=== PATIENT | male | born 1965 | race Caucasian/White ===

== ENCOUNTER 2019-03-16 14:47 | Emergency (ER) | payer SELFPAY ==
--- NOTE | 2019-03-16 14:56 | PDOC ---
Rapid Medical Evaluation Time Seen by Provider: 03/16/19 14:52 Medical Evaluation: Allergies Allergy/AdvReac Type Severity Reaction Status Date / Time No Known Allergies Allergy Verified 02/14/18 11:15 03/16/19 14:52 Patient presents to ED with complaints of: rt knee x 1 week, started while walking, no prior injury Patient on brief exam: ambulatory, Lrom with flexion, tender to medial aspect of patella I have ordered: none Patient to proceed to the ED Discharge Disposition - Diagnosis Knee pain Qualifiers: Chronicity: acute Laterality: bilateral Qualified Code(s): M25.561 - Pain in right knee - Discharge Dispostion Disposition: HOME Condition at time of disposition: Stable - Referrals Referrals: Hector Peres MD [Staff Physician] - - Patient Instructions Printed Discharge Instructions: DI for Knee Pain Additional Instructions: You were evaluated for your knee pain today Take Motrin 600mg every 6 hours for pain Wear the brace you have to keep your knee cap in place. Call the doctor listed below for an appointment. I suspect you will need physical therapy for your pain Return to the ER for any new or worsening symptoms - Post Discharge Activity Work/School Note: Back to Work
[2019-03-16 15:01] VITALS: BP 128/77; PULSE 60; TEMP 98.2; BMI 25.7
--- NOTE | 2019-03-16 15:25 | PDOC ---
History of Present Illness - General Chief Complaint: Pain, Acute Stated Complaint: PAIN IN BOTH KNEES Time Seen by Provider: 03/16/19 14:52 History Source: Patient Exam Limitations: No Limitations Past History - Travel Traveled outside of the country in the last 30 days: No Close contact w/someone who was outside of country & ill: No - Past Medical History Allergies/Adverse Reactions: Allergies Allergy/AdvReac Type Severity Reaction Status Date / Time No Known Allergies Allergy Verified 03/16/19 14:55 Home Medications: Ambulatory Orders Lisinopril [Prinivil] 5 mg PO BID #60 tablet 02/15/18 Anemia: No Asthma: No Cancer: No Cardiac Disorders: No CVA: No COPD: No CHF: No Dementia: No Diabetes: No GI Disorders: No Disorders: No HTN: No Hypercholesterolemia: No Kidney Stones: No Liver Disease: No Seizures: No Thyroid Disease: No - Surgical History Abdominal Surgery: No Appendectomy: No Cardiac Surgery: No Cholecystectomy: No Lung Surgery: No Neurologic Surgery: No Orthopedic Surgery: No - Reproductive History Testicular Surgery: No - Suicide/Smoking/Psychosocial Hx Smoking History: Never smoked Have you smoked in the past 12 months: No 'Breaking Loose' booklet given: 08/14/13 Hx Alcohol Use: Yes Drug/Substance Use Hx: No Substance Use Type: Alcohol Hx Substance Use Treatment: No Review of Systems - Review of Systems Able to Perform ROS?: Yes Comments:: 03/16/19 15:46 CONSTITUTIONAL: Absent: fever, chills, diaphoresis, generalized weakness, malaise, loss of appetite HEENT: Absent: rhinorrhea, nasal congestion, throat pain, throat swelling, difficulty swallowing, mouth swelling, ear pain, eye pain, visual Changes CARDIOVASCULAR: Absent: chest pain, loss of consciousness, palpitations, irregular heart rate, peripheral edema RESPIRATORY: Absent: cough, shortness of breath, dyspnea with exertion, orthopnea, wheezing, stridor, hemoptysis GASTROINTESTINAL: Absent: abdominal pain, abdominal distension, nausea, vomiting, diarrhea, constipation, melena, hematochezia GENITOURINARY: Absent: dysuria, frequency, urgency, hesitancy, hematuria, flank pain, genital pain MUSCULOSKELETAL: Present: b/l knee pain Absent: myalgia, arthralgia, joint swelling SKIN: Absent: rash, itching, pallor HEMATOLOGIC/IMMUNOLOGIC: Absent: easy bleeding, easy bruising, lymphadenopathy, frequent infections ENDOCRINE: Absent: unexplained weight gain, unexplained weight loss, heat intolerance, cold intolerance NEUROLOGIC: Absent: headache, focal weakness or paresthesias, dizziness, unsteady gait, seizure, mental status changes, bladder or bowel incontinence PSYCHIATRIC: Absent: anxiety, depression, suicidal or homicidal ideation, hallucinations. Is the patient limited Upper Sorbian proficient: No *Physical Exam - Vital Signs Last Vital Signs Temp Pulse Resp BP Pulse Ox 98.2 F 60 16 128/77 99 03/16/19 14:50 03/16/19 14:50 03/16/19 14:50 03/16/19 14:50 03/16/19 14:50 - Physical Exam Comments: 03/16/19 15:46 GENERAL: The patient is awake, alert, and fully oriented, in no acute distress. HEAD: Normal with no signs of trauma. EYES: Pupils equal, round and reactive to light, extraocular movements intact, sclera anicteric, conjunctiva clear. EXTREMITIES: TTP of the b/l medial knees. Special testing within normal limits. Normal range of motion, no edema. NEUROLOGICAL: Normal speech, normal gait. PSYCH: Normal mood, normal affect. SKIN: Warm, Dry, normal turgor, no rashes or lesions noted. ED Treatment Course - RADIOLOGY Radiology Studies Ordered: Category Date Time Status KNEE 3 POS-RIGHT [RAD] Stat Radiology 03/16/19 15:03 Taken Medical Decision Making - Medical Decision Making 03/16/19 16:15 the patient is a 53-year-old male medical history who presents to the ER today with bilateral knee pain for one week. He states his been getting worse over the course of the week. He is wearing ear bases with little relief. 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 Denies numbness and tingling weakness in Extremities. A/P: Knee pain On exam the kneecaps or pulled laterally X-rays confirm need Placement. Suspect IT band syndrome Patient given Motrin as an outpatient; Toradol shot given with relief of symptoms. Discharge home with primary care. I discussed the physical exam findings, ancillary test results and final diagnoses with the patient. I answered all of the patient's questions. The patient was satisfied with the care received and felt comfortable with the discharge plan and treatment plan. The Patient agrees to follow up with the primary care physician/specialist within 24-72 hours. Return precautions were given. *DC/Admit/Observation/Transfer Diagnosis at time of Disposition: Knee pain Qualifiers: Chronicity: acute Laterality: bilateral Qualified Code(s): M25.561 - Pain in right knee; M25.562 - Pain in left knee - Discharge Dispostion Disposition: HOME Condition at time of disposition: Stable Decision to Admit order: No - Referrals Referrals: Hector Peres MD [Staff Physician] - - Patient Instructions Printed Discharge Instructions: DI for Knee Pain Additional Instructions: You were evaluated for your knee pain today Take Motrin 600mg every 6 hours for pain Wear the brace you have to keep your knee cap in place. Call the doctor listed below for an appointment. I suspect you will need physical therapy for your pain Return to the ER for any new or worsening symptoms - Post Discharge Activity Forms/Work/School Notes: Back to Work
[2019-03-16] MEDS ORDERED: KETOROLAC TROMETHAMINE 60 MG/2 ML VIAL IM ONE (15:45)
[2019-03-16] MEDS ORDERED: KETOROLAC TROMETHAMINE 60 MG/2 ML VIAL ONE (15:57)
== END 2019-03-16 16:46 | disposition home or self-care (01) ==
LOC: JERFT 14:47
PROC: 3E0233Z Introduction of Anti-inflammatory into Muscle, Percutaneous Approach (ICD-10-PCS; principal; 2019-03-16)
DX: M25.562 Pain in left knee (principal)
CPT/HCPCS: 73562-TC-RT-FY; 99281-25

== ENCOUNTER 2019-04-25 08:18 | Observation (INO) | payer OTHER ==
[2019-04-25] MEDS ORDERED: ACETAMINOPHEN 325 MG TABLET (FP) PO ONE (09:08)
[2019-04-25] MEDS ORDERED: SODIUM CHLORIDE 1,000 ML IV STA (09:08)
[2019-04-25] MEDS ORDERED: ACETAMINOPHEN 325 MG TABLET (FP) ONE (09:12)
[2019-04-25 09:34] LABS: BASO % 0.7 % (0-2.0); HEMATOCRIT 40.8 % (35.4-49); HEMOGLOBIN 13.8 GM/dL (11.7-16.9); MCH 31.8 pg (25.7-33.7); MCHC 33.8 g/dl (32.0-35.9); MEAN CELL VOLUME 93.9 fl (80-96); MEAN PLT VOLUME 7.5 fl (7.5-11.1); MONO % 16.3 % (3.8-10.2); PLATELET COUNT 90 K/MM3 (134-434); RBC 4.35 M/mm3 (4.00-5.60); RDW 13.6 % (11.9-15.9); WHITE BLOOD COUNT 4.3 K/mm3 (4.0-10.0)
[2019-04-25] MEDS ORDERED: THIAMINE HCL 200 MG/2 ML VIAL IVPB ONE (09:34)
[2019-04-25] MEDS ORDERED: FOLIC ACID INJECTION - 1 MG, THIAMINE HCL 100 MG, MULTIVIT INJECTION ADULT 10 ML in SOD... IVPB ONE (09:34)
[2019-04-25] MEDS ORDERED: THIAMINE HCL 200 MG/2 ML VIAL ONE (09:39)
[2019-04-25] MEDS ORDERED: LORazepam 2 MG/ML SDV VIAL ONE (09:40)
[2019-04-25 09:53] LABS: INR 1.15 (0.83-1.09); PROTHROMBIN TIME (PATIENT) 13.6 SEC (9.7-13.0)
[2019-04-25 09:58] LABS: EPI CELLS 2.8 /HPF (0-5/HPF); HYALINE CASTS 4 /lpf (0-8); URINE APPEARANCE CLEAR; URINE BACTERIA 3.1 /hpf (NEGATIVE); URINE BILIRUBIN NEGATIVE (NEGATIVE); URINE COLOR DK YELLOW; URINE GLUCOSE (UA) NEGATIVE (NEGATIVE); URINE KETONE 2+ (NEGATIVE); URINE LEUK ESTERASE NEGATIVE (NEGATIVE); URINE NITRITE NEGATIVE (NEGATIVE); URINE PROTEIN 1+ (NEGATIVE); URINE RBC 3 /hpf (0-4); URINE WBC 0 /hpf (0-5)
--- NOTE | 2019-04-25 09:58 | EKG ---
Test Reason : Blood Pressure : / mmHG Vent. Rate : 102 BPM Atrial Rate : 102 BPM P-R Int : 174 ms QRS Dur : 104 ms QT Int : 370 ms P-R-T Axes : 056 087 040 degrees QTc Int : 482 ms SINUS TACHYCARDIA POSSIBLE LEFT ATRIAL ENLARGEMENT BORDERLINE ECG WHEN COMPARED WITH ECG OF 15-FEB-2018 18:58, VENT. RATE HAS INCREASED BY 46 BPM Confirmed by ANTOINE CRAWFORD, RAS ([id number]) on 04/25/2019 9:58:15 AM Referred By: Confirmed By:RAS SCHULTZ MD
[2019-04-25 10:32] LABS: ALBUMIN 4.3 g/dl (3.4-5.0); BILIRUBIN,TOTAL 1.1 mg/dL (0.2-1); BLOOD UREA NITROGEN 7.9 mg/dL (7-18); CALCIUM 9.2 mg/dL (8.5-10.1); CREATININE 0.8 mg/dL (0.55-1.3); MAGNESIUM 1.8 mg/dL (1.8-2.4); POTASSIUM 3.9 mmol/L (3.5-5.1); TOT PROT 8.7 g/dl (6.4-8.2)
--- NOTE | 2019-04-25 13:49 | PDOC ---
Documentation entered by Winter Hodges SCRIBE, acting as scribe for Velasquez Spears MD. Velasquez Spears MD: This documentation has been prepared by the Tracie harper Sammi, SCRIBE, under my direction and personally reviewed by me in its entirety. I confirm that the documentation accurately reflects all work, treatment, procedures, and medical decision making performed by me. History of Present Illness - General Chief Complaint: Chest Pain Stated Complaint: CHEST PAIN Time Seen by Provider: 04/25/19 08:47 - History of Present Illness Initial Comments: 04/25/19 09:11 The patient is a 53 year old male who presents to the emergency department for evaluation of left sided pleuritic constant chest pain since last night, sharp in character, 9/10 in severity, with radiation down the left upper extremity, and associated subjective fever and dizziness. He reports a similar episode last month. Past History - Past Medical History Allergies/Adverse Reactions: Allergies Allergy/AdvReac Type Severity Reaction Status Date / Time No Known Allergies Allergy Verified 04/25/19 08:27 Home Medications: Ambulatory Orders Lisinopril [Prinivil] 5 mg PO BID #60 tablet 02/15/18 metFORMIN HCL [Metformin HCl] 500 mg PO DAILY 04/25/19 Anemia: No Asthma: No Cancer: No Cardiac Disorders: No CVA: No COPD: No CHF: No Dementia: No Diabetes: No GI Disorders: No Disorders: No HTN: Yes Hypercholesterolemia: No Kidney Stones: No Liver Disease: No Seizures: No Thyroid Disease: No - Surgical History Abdominal Surgery: No Appendectomy: No Cardiac Surgery: No Cholecystectomy: No Lung Surgery: No Neurologic Surgery: No Orthopedic Surgery: No - Reproductive History Testicular Surgery: No - Psycho Social/Smoking Cessation Hx Smoking History: Never smoked Have you smoked in the past 12 months: No Information on smoking cessation initiated: No 'Breaking Loose' booklet given: 08/14/13 Hx Alcohol Use: Yes Drug/Substance Use Hx: No Substance Use Type: Alcohol Hx Substance Use Treatment: No Cardiac Specific PMH - Complaint Specific PMHX Pacemaker: No Review of Systems - Review of Systems Comments:: 04/25/19 09:11 CONSTITUTIONAL: +fever. +dizziness. no chills, no fatigue EYES: No visual changes ENT: No ear pain, no sore throat CARDIOVASCULAR: +pleuritic chest pain. no palpitations RESPIRATORY: No cough, no SOB GI: No abdominal pain, no nausea, no vomiting, no constipation, no diarrhea GENITOURINARY: No dysuria, no frequency, no hematuria MUSKULOSKELETAL: No backpain, no joint pain, no myalgias SKIN: No rash NEURO: No headache *Physical Exam - Vital Signs Last Vital Signs Temp Pulse Resp BP Pulse Ox 99.5 F 92 H 18 148/90 96 04/25/19 09:05 04/25/19 10:54 04/25/19 10:54 04/25/19 10:54 04/25/19 10:54 - Physical Exam Comments: 04/25/19 11:12 CONSTITUTIONAL: +tremulous. NECK: Supple; non-tender; no cervical lymphadenopathy CARD: +tachycardic. Normal S1, S2; no murmurs, rubs, or gallops RESP: Normal chest excursion with respiration; breath sounds clear and equal bilaterally; no wheezes, rhonchi, or rales ABD: Soft, non-distended; non-tender; no palpable organomegaly, no palpable hernias EXT: Normal ROM in all four extremities; non-tender to palpation; distal pulses intact SKIN: Warm, dry, no rash NEURO: No focal neurological deficiencies. ED Treatment Course - LABORATORY CBC & Chemistry Diagram: 04/25/19 09:22 04/25/19 09:22 - ADDITIONAL ORDERS Additional order review: Laboratory Results 04/25/19 04/25/19 04/25/19 09:22 09:22 09:22 PT with INR 13.60 H INR 1.15 H Sodium 140 Potassium 3.9 Chloride 102 Carbon Dioxide 29 Anion Gap 9 BUN 7.9 Creatinine 0.8 Est GFR (CKD-EPI)AfAm 119.88 Est GFR (CKD-EPI)NonAf 103.43 Random Glucose 107 H Calcium 9.2 Magnesium 1.8 Total Bilirubin 1.1 H AST 277 H ALT 201 H Alkaline Phosphatase 150 H Creatine Kinase Creatine Kinase Index CK-MB (CK-2) Troponin I Total Protein 8.7 H Albumin 4.3 Urine Color Dk yellow Urine Appearance Clear Urine pH 8.0 Ur Specific [place] 1.022 Urine Protein 1+ H Urine Glucose (UA) Negative Urine Ketones 2+ H Urine Blood Negative Urine Nitrite Negative Urine Bilirubin Negative Urine Urobilinogen 1.0 Ur Leukocyte Esterase Negative Urine WBC (Auto) 0 Urine RBC (Auto) 3 Urine Casts (Auto) 4 U Epithel Cells (Auto) 2.8 Urine Bacteria (Auto) 3.1 04/25/19 09:22 PT with INR INR Sodium Potassium Chloride Carbon Dioxide Anion Gap BUN Creatinine Est GFR (CKD-EPI)AfAm Est GFR (CKD-EPI)NonAf Random Glucose Calcium Magnesium Total Bilirubin AST ALT Alkaline Phosphatase Creatine Kinase 160 Creatine Kinase Index No Result Required. CK-MB (CK-2) < 1.0 Troponin I < 0.02 Total Protein Albumin Urine Color Urine Appearance Urine pH Ur Specific [place] Urine Protein Urine Glucose (UA) Urine Ketones Urine Blood Urine Nitrite Urine Bilirubin Urine Urobilinogen Ur Leukocyte Esterase Urine WBC (Auto) Urine RBC (Auto) Urine Casts (Auto) U Epithel Cells (Auto) Urine Bacteria (Auto) 04/25/19 09:22 RBC 4.35 MCV 93.9 MCHC 33.8 RDW 13.6 MPV 7.5 Neutrophils % 76.0 D Lymphocytes % 7.0 L D Monocytes % 16.3 H Eosinophils % 0.0 D Basophils % 0.7 - RADIOLOGY Radiology Studies Ordered: Category Date Time Status CHEST X-RAY PORTABLE* [RAD] Stat Radiology 04/25/19 09:06 Completed - Medications Given in the ED: ED Medications Discontinued Medications Generic Name Dose Route Start Last Admin Trade Name Freq PRN Reason Stop Dose Admin Acetaminophen 650 mg 04/25/19 09:08 04/25/19 09:29 Tylenol - PO 04/25/19 09:09 650 mg ONCE ONE Administration Sodium Chloride 1,000 mls @ 1,000 mls/hr 04/25/19 09:08 04/25/19 09:29 Normal Saline - IV 04/25/19 10:07 1,000 mls/hr ASDIR STA Administration Lorazepam 1 mg 04/25/19 09:33 04/25/19 09:45 Ativan Injection - IVPUSH 04/25/19 09:34 1 mg ONCE ONE Administration Thiamine HCl 200 mg 04/25/19 09:34 04/25/19 09:45 Vitamin B1 Injection - IVPB 04/25/19 09:35 200 mg ONCE ONE Administration Medical Decision Making - Medical Decision Making 04/25/19 13:47 Patient is a 53-year-old male with history of diabetes, hypertension alcohol abuse who presents with atraumatic left-sided chest discomfort and bilateral tremors after cessation of alcohol use 3 days prior to arrival. EKG showed no evidence of acute ischemia and first set of cardiac enzymes is noted to be within normal limits. Patient's tremors are likely related to acute alcohol withdrawal and IV Ativan was administered. On reassessment, patient is noted to be sleeping, easily arousable without evidence of a significant tremor. Chest x-ray reveals no evidence of pneumothorax/infiltrate or effusion. There is no evidence of cardiomegaly. Patient's heart score is noted to be 4. Given constellation of symptoms, will place on telemetry/rubs. Case discussed with Dr. cherry and she agrees with the plan of care. Discharge - Discharge Information Problems reviewed: Yes Clinical Impression/Diagnosis: Chest pain Qualifiers: Chest pain type: unspecified Qualified Code(s): R07.9 - Chest pain, unspecified Alcohol withdrawal Qualifiers: Complication of substance-induced condition: uncomplicated Qualified Code(s): F10.230 - Alcohol dependence with withdrawal, uncomplicated Condition: Fair - Admission Yes - Follow up/Referral - Patient Discharge Instructions - Post Discharge Activity
[2019-04-25 18:50] VITALS: BMI 23.8
--- NOTE | 2019-04-25 19:10 | HP ---
Admitting History and Physical - Primary Care Physician PCP: Anthony Arreola - Admission History of Present Illness: - 53 year old male who presents to the emergency department for evaluation of left sided pleuritic constant chest pain since last night, sharp in character, 9 /10 in severity, with radiation down the left upper extremity, and associated subjective fever and dizziness. He reports a similar episode last month. - Past Surgical History Past Surgical History: Yes: None - Smoking History Smoking history: Former smoker Have you smoked in the past 12 months: No - Alcohol/Substance Use Hx Alcohol Use: Yes History of Substance Use: reports: None Home Medications - Allergies Allergies/Adverse Reactions: Allergies Allergy/AdvReac Type Severity Reaction Status Date / Time No Known Allergies Allergy Verified 04/25/19 08:27 - Home Medications Home Medications: Ambulatory Orders Lisinopril [Prinivil] 5 mg PO BID #60 tablet 02/15/18 metFORMIN HCL [Metformin HCl] 500 mg PO DAILY 04/25/19 Physical Examination Vital Signs: Vital Signs Temperature 98 F 04/25/19 18:42 Pulse Rate 81 04/25/19 18:42 Respiratory Rate 18 04/25/19 18:42 Blood Pressure 169/98 04/25/19 18:42 O2 Sat by Pulse Oximetry (%) 99 04/25/19 18:24 Constitutional: Yes: No Distress HENT: Yes: Atraumatic Neck: Yes: Supple Cardiovascular: Yes: Regular Rate and Rhythm Respiratory: Yes: CTA Bilaterally Gastrointestinal: Yes: Normal Bowel Sounds Extremities: Yes: WNL Edema: No Peripheral Pulses WNL: Yes Neurological: Yes: Alert, Oriented Labs: CBC, BMP 04/25/19 09:22 04/25/19 09:22 Imaging - Results X-ray: Report Reviewed Problem List - Problems (1) Chest pain Assessment/Plan: tele monitoring fu cardiac profile cardiology consult Code(s): R07.9 - CHEST PAIN, UNSPECIFIED Qualifiers: Chest pain type: unspecified Qualified Code(s): R07.9 - Chest pain, unspecified (2) Hypercholesterolemia Code(s): E78.00 - PURE HYPERCHOLESTEROLEMIA, UNSPECIFIED (3) Hypertension Code(s): I10 - ESSENTIAL (PRIMARY) HYPERTENSION Qualifiers: (4) Diabetes Assessment/Plan: on meds monitor bgms Code(s): E11.9 - TYPE 2 DIABETES MELLITUS WITHOUT COMPLICATIONS Assessment/Plan Laboratory Tests 04/25/19 04/25/19 04/25/19 09:22 09:22 09:22 WBC 4.3 RBC 4.35 Hgb 13.8 Hct 40.8 MCV 93.9 MCH 31.8 MCHC 33.8 RDW 13.6 Plt Count 90 L D MPV 7.5 Absolute Neuts (auto) 3.3 Neutrophils % 76.0 D Lymphocytes % 7.0 L D Monocytes % 16.3 H Eosinophils % 0.0 D Basophils % 0.7 Nucleated RBC % 0 PT with INR INR Sodium 140 Potassium 3.9 Chloride 102 Carbon Dioxide 29 Anion Gap 9 BUN 7.9 Creatinine 0.8 Est GFR (CKD-EPI)AfAm 119.88 Est GFR (CKD-EPI)NonAf 103.43 Random Glucose 107 H Calcium 9.2 Magnesium 1.8 Total Bilirubin 1.1 H AST 277 H ALT 201 H Alkaline Phosphatase 150 H Creatine Kinase 160 Creatine Kinase Index No Result Required. CK-MB (CK-2) < 1.0 Troponin I < 0.02 Total Protein 8.7 H Albumin 4.3 Urine Color Urine Appearance Urine pH Ur Specific [place] Urine Protein Urine Glucose (UA) Urine Ketones Urine Blood Urine Nitrite Urine Bilirubin Urine Urobilinogen Ur Leukocyte Esterase Urine WBC (Auto) Urine RBC (Auto) Urine Casts (Auto) U Epithel Cells (Auto) Urine Bacteria (Auto) 04/25/19 04/25/19 09:22 09:22 WBC RBC Hgb Hct MCV MCH MCHC RDW Plt Count MPV Absolute Neuts (auto) Neutrophils % Lymphocytes % Monocytes % Eosinophils % Basophils % Nucleated RBC % PT with INR 13.60 H INR 1.15 H Sodium Potassium Chloride Carbon Dioxide Anion Gap BUN Creatinine Est GFR (CKD-EPI)AfAm Est GFR (CKD-EPI)NonAf Random Glucose Calcium Magnesium Total Bilirubin AST ALT Alkaline Phosphatase Creatine Kinase Creatine Kinase Index CK-MB (CK-2) Troponin I Total Protein Albumin Urine Color Dk yellow Urine Appearance Clear Urine pH 8.0 Ur Specific [place] 1.022 Urine Protein 1+ H Urine Glucose (UA) Negative Urine Ketones 2+ H Urine Blood Negative Urine Nitrite Negative Urine Bilirubin Negative Urine Urobilinogen 1.0 Ur Leukocyte Esterase Negative Urine WBC (Auto) 0 Urine RBC (Auto) 3 Urine Casts (Auto) 4 U Epithel Cells (Auto) 2.8 Urine Bacteria (Auto) 3.1 Active Medications Generic Name Dose Route Start Last Admin Trade Name Freq PRN Reason Stop Dose Admin Lisinopril 5 mg 04/25/19 22:00 04/26/19 09:42 Prinivil PO 5 mg BID OLVIN Administration Metformin HCl 500 mg 04/26/19 07:00 04/26/19 06:45 Glucophage - PO 500 mg AM OLVIN Administration
[2019-04-25] MEDS: LISINOPRIL 5 MG TABLET (FP) PO SCH (21:16)
[2019-04-26] MEDS: metFORMIN HCL 500 MG TABLET (FP) PO SCH (06:45)
[2019-04-26] MEDS: LISINOPRIL 5 MG TABLET (FP) PO SCH ×2 (09:42→22:04)
--- NOTE | 2019-04-26 15:10 | CON.CARD ---
Consult Consult Specialty:: Cardiology Referred by:: Dr. Arreola Reason for Consultation:: Cardiac evaluation - History of Present Illness Chief Complaint: Chest pain History of Present Illness: Patient is a 53 year old male with history of type 2 DM and HTN who presented with left sided chest discomfort which appears to be pleuritic. He describes a "sharp" pain. He denies shortness of breath or palpitations. He denies paroxysmal nocturnal dyspnea or orthopnea. He denies fever or chills. He denies nausea, vomiting, diarrhea or abdominal pain. He denies headache or lightheadedness. - History Source History Provided By: Patient, Medical Record Limitations to Obtaining History: No Limitations - Past Medical History Cardio/Vascular: Yes: HTN Endocrine: Yes: Diabetes Mellitus - Past Surgical History Past Surgical History: Yes: None - Alcohol/Substance Use Hx Alcohol Use: Yes History of Substance Use: reports: None - Smoking History Smoking history: Former smoker Have you smoked in the past 12 months: No Home Medications - Allergies Allergies/Adverse Reactions: Allergies Allergy/AdvReac Type Severity Reaction Status Date / Time No Known Allergies Allergy Verified 04/25/19 08:27 - Home Medications Home Medications: Ambulatory Orders Lisinopril [Prinivil] 5 mg PO BID #60 tablet 02/15/18 metFORMIN HCL [Metformin HCl] 500 mg PO DAILY 04/25/19 Review of Systems - Review of Systems Constitutional: denies: Chills, Fever Cardiovascular: reports: Chest Pain. denies: Palpitations, Shortness of Breath Respiratory: denies: Cough, Hemoptysis, Orthopnea, PND, SOB, SOB on Exertion Gastrointestinal: denies: Abdominal Pain, Constipation, Diarrhea, Melena, Nausea , Rectal Bleeding, Vomiting Genitourinary: denies: Dysuria, Hematuria Musculoskeletal: denies: Back Pain, Joint Pain Neurological: denies: Dizziness, Headache, Seizure, Syncope Vital Signs: Vital Signs Temperature 98.7 F 04/26/19 06:00 Pulse Rate 82 04/26/19 10:00 Respiratory Rate 18 04/26/19 10:00 Blood Pressure 123/78 04/26/19 10:00 O2 Sat by Pulse Oximetry (%) 99 04/26/19 05:00 Eyes: Yes: PERRL HENT: Yes: Atraumatic Neck: Yes: Supple Respiratory: Yes: CTA Bilaterally Gastrointestinal: Yes: Normal Bowel Sounds, Soft. No: Tenderness Cardiovascular: Yes: Regular Rate and Rhythm JVD: No Carotid Bruit: No PMI: Non-Displaced Heart Sounds: Yes: S1, S2 Edema: No - Other Data Labs, Other Data: CBC, BMP 04/25/19 09:22 04/25/19 09:22 INR, PTT INR 1.15 (0.83-1.09) H 04/25/19 09:22 Troponin, BNP 04/25/19 04/26/19 20:00 06:05 Troponin I < 0.02 < 0.02 Sinus tachycardia Imaging - Results Chest X-ray: Report Reviewed (Unremarkable) EKG: Report Reviewed Problem List - Problems (1) Diabetes Code(s): E11.9 - TYPE 2 DIABETES MELLITUS WITHOUT COMPLICATIONS (2) Transaminitis Code(s): R74.0 - NONSPEC ELEV OF LEVELS OF TRANSAMNS & LACTIC ACID DEHYDRGNSE (3) Atypical chest pain Code(s): R07.89 - OTHER CHEST PAIN Assessment/Plan 1. Chest pain syndrome, atypical 2. DM 3. HTN 4. Abnormal LFT PLAN: 1. Troponins are negative 2. Continue Lisinopril 3. Continue current medical therapy 4. Further evaluation for abnormal LFT 5. Echocardiography in AM Further plans are to follow Waqar Newton MD
--- NOTE | 2019-04-26 18:10 | PN ---
Progress Note, Physician - Current Medication List Current Medications: Active Medications Lisinopril (Prinivil) 5 mg PO BID [facility] Last Admin: 04/26/19 09:42 Dose: 5 mg Metformin HCl (Glucophage -) 500 mg PO AM [facility] Last Admin: 04/26/19 06:45 Dose: 500 mg - Objective Vital Signs: Vital Signs Temperature 98.0 F 04/26/19 14:00 Pulse Rate 76 04/26/19 14:00 Respiratory Rate 18 04/26/19 10:00 Blood Pressure 126/78 04/26/19 14:00 O2 Sat by Pulse Oximetry (%) 99 04/26/19 05:00 Constitutional: Yes: No Distress HENT: Yes: Atraumatic Neck: Yes: Supple Cardiovascular: Yes: Regular Rate and Rhythm Respiratory: Yes: CTA Bilaterally Extremities: Yes: WNL Labs: CBC, BMP 04/25/19 09:22 04/25/19 09:22 INR, PTT INR 1.15 (0.83-1.09) H 04/25/19 09:22 Problem List - Problems (1) Chest pain Assessment/Plan: tele monitoring fu cardiac profile...NEGATIVE DC IF CLEARED BY CARDIOLOGY Code(s): R07.9 - CHEST PAIN, UNSPECIFIED Qualifiers: Chest pain type: unspecified Qualified Code(s): R07.9 - Chest pain, unspecified (2) Hypercholesterolemia Code(s): E78.00 - PURE HYPERCHOLESTEROLEMIA, UNSPECIFIED (3) Hypertension Assessment/Plan: ON MEDS Code(s): I10 - ESSENTIAL (PRIMARY) HYPERTENSION Qualifiers: (4) Diabetes Assessment/Plan: on meds monitor bgms Code(s): E11.9 - TYPE 2 DIABETES MELLITUS WITHOUT COMPLICATIONS
[2019-04-26] MEDS: ACETAMINOPHEN 325 MG TABLET (FP) PO PRN (22:02)
[2019-04-27] MEDS: ACETAMINOPHEN 325 MG TABLET (FP) PO PRN (05:51)
[2019-04-27] MEDS: metFORMIN HCL 500 MG TABLET (FP) PO SCH (06:07)
[2019-04-27 07:24] LABS: ALBUMIN 3.8 g/dl (3.4-5.0); BILIRUBIN,TOTAL 1.6 mg/dL (0.2-1); BLOOD UREA NITROGEN 9.3 mg/dL (7-18); CALCIUM 9.1 mg/dL (8.5-10.1); CREATININE 0.8 mg/dL (0.55-1.3); POTASSIUM 4.4 mmol/L (3.5-5.1)
[2019-04-27] MEDS: LISINOPRIL 5 MG TABLET (FP) PO SCH (10:18)
--- NOTE | 2019-04-27 10:44 | ECHO ---
Name: LANEY HOPE Exam:Adult Echocardiogram Study Date: 04/27/2019 08:40 AM Age: 53 yrs Reason For Study: Chest pain Height: 64 in Weight: 139 lb BSA: 1.7 m2 MMode/2D Measurements & Calculations IVSd: 1.0 cm Ao root diam: 2.9 cm LVIDd: 4.3 cm LA dimension: 3.0 cm LVIDs: 2.8 cm LVPWd: 1.0 cm EDV(Teich): 81.8 ml LVOT diam: 2.0 cm ESV(Teich): 28.6 ml LAV (MOD-bp): 38.8 ml Doppler Measurements & Calculations MV E max dieudonne: 36.9 cm/sec Ao V2 max: 101.8 cm/sec MV A max dieudonne: 73.2 cm/sec Ao max P.1 mmHg MV E/A: 0.50 AI P1/2t: 548.5 msec MV dec time: 0.12 sec RYAN(V,D): 2.7 cm2 AI max dieudonne: 283.0 cm/sec LV V1 max P.2 mmHg AI max P.6 mmHg LV V1 max: 89.2 cm/sec AI dec slope: 151.1 cm/sec2 TR max dieudonne: 195.7 cm/sec PA V2 max: 90.9 cm/sec TR max P.4 mmHg PA max P.3 mmHg Med Peak E' Dieudonne: 4.5 cm/sec PI Vmax: 69.2 cm/sec Med E/e': 8.3 Lat Peak E' Dieudonne: 4.4 cm/sec Lat E/e': 8.5 Procedure The study was technically difficult with many images being suboptimal in quality. Left Ventricle Left ventricular systolic function is low normal. Ejection Fraction = 50%. Right Ventricle The right ventricle is normal in size and function. Atria Normal left and right atrial size and function. Mitral Valve The mitral valve is normal in structure and function. There is no mitral valve stenosis. There is no mitral regurgitation noted. Tricuspid Valve The tricuspid valve is normal in structure and function. There is mild tricuspid regurgitation. Aortic Valve The aortic valve opens well. No hemodynamically significant valvular aortic stenosis. Mild to moderat e aortic regurgitation. Pulmonic Valve The pulmonic valve is not well seen, but is grossly normal. There is no pulmonic valvular stenosis. Great Vessels The aortic root is normal size. Pericardium/Pleura There is no pericardial effusion. Interpretation Summary The study was technically difficult with many images being suboptimal in quality. Left ventricular systolic function is low normal. Ejection Fraction = 50%. The right ventricle is normal in size and function. There is mild tricuspid regurgitation. Mild to moderate aortic regurgitation. There is no pericardial effusion. MD Quiles *Jermaine 04/27/2019 10:43 AM
--- NOTE | 2019-04-27 12:12 | PN ---
Progress Note, Physician Chief Complaint: Not in distress History of Present Illness: Patient was seen and examined. Awake and alert. Chart was reviewed Denies chest pain, SOB or palpitations - Current Medication List Current Medications: Active Medications Acetaminophen (Tylenol -) 650 mg PO Q6H PRN PRN Reason: PAIN LEVEL 1-5 Last Admin: 04/27/19 05:51 Dose: 650 mg Lisinopril (Prinivil) 5 mg PO BID [facility] Last Admin: 04/27/19 10:18 Dose: 5 mg Metformin HCl (Glucophage -) 500 mg PO AM [facility] Last Admin: 04/27/19 06:07 Dose: 500 mg - Objective Vital Signs: Vital Signs Temperature 98.1 F 04/27/19 10:00 Pulse Rate 71 04/27/19 10:00 Respiratory Rate 20 04/27/19 10:00 Blood Pressure 119/64 04/27/19 10:00 O2 Sat by Pulse Oximetry (%) 100 04/27/19 08:00 Eyes: Yes: PERRL HENT: Yes: Atraumatic Neck: Yes: Supple Cardiovascular: Yes: Regular Rate and Rhythm, S1, S2 Respiratory: Yes: CTA Bilaterally Gastrointestinal: Yes: Normal Bowel Sounds, Soft. No: Tenderness Edema: No Additional Findings/Remarks: - Review of Systems Constitutional: denies: Chills, Fever Cardiovascular: reports: Chest Pain. denies: Palpitations, Shortness of Breath Respiratory: denies: Cough, Hemoptysis, Orthopnea, PND, SOB, SOB on Exertion Gastrointestinal: denies: Abdominal Pain, Constipation, Diarrhea, Melena, Nausea , Rectal Bleeding, Vomiting Genitourinary: denies: Dysuria, Hematuria Musculoskeletal: denies: Back Pain, Joint Pain Neurological: denies: Dizziness, Headache, Seizure, Syncope Labs: CBC, BMP 04/25/19 09:22 04/27/19 05:27 INR, PTT INR 1.15 (0.83-1.09) H 04/25/19 09:22 Problem List - Problems (1) Diabetes Code(s): E11.9 - TYPE 2 DIABETES MELLITUS WITHOUT COMPLICATIONS (2) Transaminitis Code(s): R74.0 - NONSPEC ELEV OF LEVELS OF TRANSAMNS & LACTIC ACID DEHYDRGNSE (3) Atypical chest pain Code(s): R07.89 - OTHER CHEST PAIN Assessment/Plan 1. Chest pain syndrome, atypical 2. DM 3. HTN 4. Abnormal LFT PLAN: 1. Troponins are negative 2. Continue Lisinopril 3. Continue current medical therapy 4. Abdominal US reveals fatty liver. Follow up LFT. 5. Echocardiography report was reviewed with low normal LV systolic function, mild to moderate TR Further plans are to follow Waqar Newton MD
[2019-04-27 14:53] VITALS: TEMP 98.8
[2019-04-27 16:38] VITALS: BP 114/57; PULSE 85
--- NOTE | 2019-04-28 00:38 | DS ---
Physical Examination Vital Signs: Vital Signs Temperature 98.8 F 04/27/19 14:00 Pulse Rate 85 04/27/19 16:37 Respiratory Rate 20 04/27/19 16:37 Blood Pressure 114/57 L 04/27/19 16:37 O2 Sat by Pulse Oximetry (%) 100 04/27/19 16:00 Labs: CBC, BMP 04/25/19 09:22 04/27/19 05:27 Discharge Summary Problems reviewed: Yes Reason For Visit: ALCOHOL WITHDRAWAL Condition: Fair - Instructions Diet, Activity, Other Instructions: SEE YOUR PMD 2-3 DAYS Disposition: HOME - Home Medications Comprehensive Discharge Medication List: Ambulatory Orders Lisinopril [Prinivil] 5 mg PO BID #60 tablet 04/28/19 metFORMIN HCL [Metformin HCl] 500 mg PO DAILY #30 tablet 04/28/19
== END 2019-04-27 18:51 | disposition home or self-care (01) ==
LOC: JER 08:18 → JERBED 14:35 → J4W 18:36
PROVIDERS: ADMIT Internal Medicine; ATTEND Internal Medicine
PROC: 3E033GC Introduction of Other Therapeutic Substance into Peripheral Vein, Percutaneous Approach (ICD-10-PCS; principal; 2019-04-25)
PROC: 3E033GC Introduction of Other Therapeutic Substance into Peripheral Vein, Percutaneous Approach (ICD-10-PCS; 2019-04-25)
PROC: 3E0337Z Introduction of Electrolytic and Water Balance Substance into Peripheral Vein, Percutaneous Approach (ICD-10-PCS; 2019-04-25)
DX: R07.89 Other chest pain (principal); F10.230 Alcohol dependence with withdrawal, uncomplicated; I10 Essential (primary) hypertension; E78.00 Pure hypercholesterolemia, unspecified; E11.9 Type 2 diabetes mellitus without complications; Z79.84 Long term (current) use of oral hypoglycemic drugs; R74.0 Nonspecific elevation of levels of transaminase and lactic acid dehydrogenase [LDH]
CPT/HCPCS: 36415; 71045-TC-FY; 76705-TC; 80053; 80061; 81003; 82550; 82553; 82962; 83721; 83735; 84484; 85025; 85610; 87040; 87076; 87086; 93005; 93010; 93306-TC; 96365; 96366; 96375; 99285-25; G0378; J7030

== ENCOUNTER 2020-07-29 04:06 | Emergency (ER) | payer OTHER ==
[2020-07-29 04:19] VITALS: BMI 25.7
[2020-07-29] MEDS ORDERED: LORazepam 2 MG/ML SDV VIAL IVPUSH ONE (06:12)
[2020-07-29] MEDS ORDERED: LORazepam 2 MG/ML SDV VIAL ONE (06:19)
[2020-07-29 06:30] LABS: BASO % 0.4 % (0-2.0); EOS % 0.9 % (0-4.5); HEMATOCRIT 39.1 % (35.4-49); HEMOGLOBIN 13.7 GM/dL (11.7-16.9); LYMPH % 22.3 % (8-40); MCH 31.6 pg (25.7-33.7); MEAN CELL VOLUME 90.5 fl (80-96); MEAN PLT VOLUME 8.2 fl (7.5-11.1); MONO % 12.9 % (3.8-10.2); NEUT % 63.5 % (42.8-82.8); PLATELET COUNT 77 K/MM3 (134-434); RBC 4.32 M/mm3 (4.00-5.60); RDW 13.3 % (11.9-15.9); WHITE BLOOD COUNT 3.1 K/mm3 (4.0-10.0)
[2020-07-29 06:48] LABS: CHLORIDE 98 mmol/L (98-107); SODIUM 134 mmol/L (136-145)
[2020-07-29 06:50] LABS: CALCIUM 8.2 mg/dL (8.5-10.1)
[2020-07-29 06:51] LABS: ALBUMIN 3.6 g/dl (3.4-5.0); ANION GAP 9 MMOL/L (8-16); BLOOD UREA NITROGEN 4.6 mg/dL (7-18); CO2 28 mmol/L (21-32); GLUCOSE,RANDOM 268 mg/dL (74-106); LIPASE 177 U/L (73-393)
[2020-07-29 06:54] LABS: CREATININE 0.7 mg/dL (0.55-1.3); SGOT/AST 221 U/L (15-37); SGPT/ALT 175 U/L (13-61)
[2020-07-29 06:55] LABS: BILIRUBIN,TOTAL 1.1 mg/dL (0.2-1); TOT PROT 8.6 g/dl (6.4-8.2)
[2020-07-29 06:56] LABS: ALK PHOS 255 U/L (45-117)
[2020-07-29 07:05] LABS: INR 1.09 (0.83-1.09); PROTHROMBIN TIME (PATIENT) 13.2 SEC (9.7-13.0)
[2020-07-29 07:07] LABS: ACTIVATED PTT 32.6 SECONDS (25.2-36.5)
[2020-07-29 09:42] VITALS: BP 150/90; PULSE 109; TEMP 98.8
== END 2020-07-29 11:53 | disposition home or self-care (01) ==
LOC: JER 04:06
PROC: 3E033NZ Introduction of Analgesics, Hypnotics, Sedatives into Peripheral Vein, Percutaneous Approach (ICD-10-PCS; principal; 2020-07-29)
DX: F10.20 Alcohol dependence, uncomplicated (principal); R07.9 Chest pain, unspecified
CPT/HCPCS: 36415; 70450-TC; 71275-TC; 74174-TC; 80053; 82550; 83605; 83690; 84484; 85025; 85610; 85730; 93005; 93010; 99285-25; Q9967

== ENCOUNTER 2020-11-27 13:44 | Inpatient (IN) | payer OTHER ==
[2020-11-27] MEDS ORDERED: SODIUM CHLORIDE 0.9% 500 ML INFUS.BAG IV ONE ×2 (14:56→17:55)
[2020-11-27 15:11] LABS: BASO % 0.7 % (0-2.0); EOS % 1.1 % (0-4.5); HEMATOCRIT 33.7 % (35.4-49); HEMOGLOBIN 11.7 GM/dL (11.7-16.9); LYMPH % 31.8 % (8-40); MCH 34.2 pg (25.7-33.7); MCHC 34.8 g/dl (32.0-35.9); MEAN CELL VOLUME 98.2 fl (80-96); MEAN PLT VOLUME 7.8 fl (7.5-11.1); MONO % 15.4 % (3.8-10.2); PLATELET COUNT 113 K/MM3 (134-434); RBC 3.43 M/mm3 (4.00-5.60); RDW 12.7 % (11.9-15.9); WHITE BLOOD COUNT 3.9 K/mm3 (4.0-10.0)
[2020-11-27 15:13] LABS: VENOUS BASE EXCESS -4.2 mmol/L (-2-2); VENOUS O2 SATURATION 94.2 % (70-80); VENOUS PCO2 37.5 mmHg (38-52); VENOUS PH 7.361 (7.310-7.410)
[2020-11-27 15:36] LABS: CHLORIDE 100 mmol/L (98-107); SODIUM 138 mmol/L (136-145)
[2020-11-27 15:38] LABS: CALCIUM 8.1 mg/dL (8.5-10.1)
[2020-11-27 15:39] LABS: ALBUMIN 2.9 g/dl (3.4-5.0); ANION GAP 17 MMOL/L (8-16); BLOOD UREA NITROGEN 3.5 mg/dL (7-18); CO2 21 mmol/L (21-32); GLUCOSE,RANDOM 387 mg/dL (74-106); MAGNESIUM 1.9 mg/dL (1.8-2.4)
[2020-11-27 15:42] LABS: CREATININE 0.5 mg/dL (0.55-1.3); SGOT/AST 291 U/L (15-37); SGPT/ALT 200 U/L (13-61)
[2020-11-27 15:43] LABS: BILIRUBIN,TOTAL 0.6 mg/dL (0.2-1); TOT PROT 6.4 g/dl (6.4-8.2)
[2020-11-27 15:44] LABS: ALK PHOS 269 U/L (45-117)
[2020-11-27 18:10] LABS: URINE APPEARANCE CLEAR; URINE BILIRUBIN NEGATIVE (NEGATIVE); URINE COLOR YELLOW; URINE GLUCOSE (UA) 3+ (NEGATIVE); URINE KETONE 2+ (NEGATIVE); URINE LEUK ESTERASE NEGATIVE (NEGATIVE); URINE NITRITE NEGATIVE (NEGATIVE); URINE PROTEIN NEGATIVE (NEGATIVE); URINE UROBILINOGEN 0.2 mg/dL (0.2-1.0)
[2020-11-27 20:02] LABS: CHLORIDE 102 mmol/L (98-107); SODIUM 139 mmol/L (136-145)
[2020-11-27 20:05] LABS: ANION GAP 15 MMOL/L (8-16); CALCIUM 7.1 mg/dL (8.5-10.1); CO2 22 mmol/L (21-32); GLUCOSE,RANDOM 259 mg/dL (74-106)
[2020-11-27 20:06] LABS: ALBUMIN 2.6 g/dl (3.4-5.0)
[2020-11-27 20:08] LABS: SGPT/ALT 202 U/L (13-61)
[2020-11-27 20:09] LABS: CREATININE 0.4 mg/dL (0.55-1.3); SGOT/AST 370 U/L (15-37)
[2020-11-27 20:10] LABS: BILIRUBIN,TOTAL 0.6 mg/dL (0.2-1); TOT PROT 5.8 g/dl (6.4-8.2)
[2020-11-27 20:16] LABS: ALK PHOS 228 U/L (45-117); BLOOD UREA NITROGEN 2.7 mg/dL (7-18)
[2020-11-27] MEDS ORDERED: POTASSIUM CHLORIDE TABS 20 MEQ TABLET.ER (FP) PO ONE ×2 (20:28→20:32)
[2020-11-27] MEDS ORDERED: LIDOCAINE 5% TOPICAL PATCH TP ONE (23:59)
[2020-11-28] MEDS: LIDOCAINE PATCH REMOVAL MC SCH ×2 (01:05→22:09)
[2020-11-28] MEDS: INSULIN SLIDING SCALE (NOVOLOG) 1 VIAL SQ SCH ×4 (06:21→22:12)
[2020-11-28 06:51] LABS: BASO % 0.3 % (0-2.0); EOS % 1.5 % (0-4.5); HEMATOCRIT 35.8 % (35.4-49); HEMOGLOBIN 12.3 GM/dL (11.7-16.9); LYMPH % 19.8 % (8-40); MCHC 34.2 g/dl (32.0-35.9); MEAN CELL VOLUME 99.4 fl (80-96); MEAN PLT VOLUME 8.3 fl (7.5-11.1); MONO % 13.9 % (3.8-10.2); NEUT % 64.5 % (42.8-82.8); PLATELET COUNT 97 K/MM3 (134-434); RBC 3.61 M/mm3 (4.00-5.60); RDW 12.7 % (11.9-15.9); WHITE BLOOD COUNT 3.6 K/mm3 (4.0-10.0)
[2020-11-28 07:08] LABS: INR 0.99 (0.83-1.09)
[2020-11-28 07:10] LABS: ALBUMIN 2.9 g/dl (3.4-5.0); BLOOD UREA NITROGEN 5.2 mg/dL (7-18); CALCIUM 7.8 mg/dL (8.5-10.1); MAGNESIUM 1.6 mg/dL (1.8-2.4)
[2020-11-28 07:13] LABS: CREATININE 0.5 mg/dL (0.55-1.3)
[2020-11-28 07:14] LABS: PHOSPHOROUS 2.8 mg/dL (2.5-4.9)
[2020-11-28 07:15] LABS: TOT PROT 6.3 g/dl (6.4-8.2)
[2020-11-28] MEDS ORDERED: INSULIN (LEVEMIR) 100 UNITS/ML UNITS SQ ONE (08:21)
[2020-11-28] MEDS ORDERED: MAGNESIUM SULF 50% (8.12 MEQ/2 ML-1 GM VIAL) IVPB ONE (09:30)
[2020-11-28] MEDS: ENOXAPARIN NA (PORCINE) 40 MG/0.4 ML DISP.SYRIN SQ SCH (09:42)
[2020-11-28] MEDS: SODIUM CHLORIDE 1,000 ML IV SCH ×2 (09:42→22:01)
[2020-11-28] MEDS ORDERED: THIAMINE HCL 200 MG/2 ML VIAL IVPB ONE (11:00)
[2020-11-28] MEDS: PANTOPRAZOLE 20 MG TABLET PO SCH (13:48)
[2020-11-28 14:22] LABS: BLOOD UREA NITROGEN 7.6 mg/dL (7-18); CALCIUM 8.4 mg/dL (8.5-10.1)
[2020-11-28 14:26] LABS: CREATININE 0.6 mg/dL (0.55-1.3)
[2020-11-28] MEDS ORDERED: FLU VACCINE (FLULAVAL) PF 60 MCG/0.5 ML SYRINGE 2020-2021 IM ONE (16:00)
[2020-11-28] MEDS ORDERED: INSULIN (LEVEMIR) 100 UNITS/ML UNITS SQ SCH (22:00)
[2020-11-29] MEDS: INSULIN SLIDING SCALE (NOVOLOG) 1 VIAL SQ SCH ×4 (06:12→22:21)
[2020-11-29 07:33] LABS: BASO % 0.5 % (0-2.0); EOS % 1.9 % (0-4.5); HEMATOCRIT 37.4 % (35.4-49); HEMOGLOBIN 13.2 GM/dL (11.7-16.9); LYMPH % 13.3 % (8-40); MCH 34.6 pg (25.7-33.7); MCHC 35.1 g/dl (32.0-35.9); MEAN CELL VOLUME 98.5 fl (80-96); MEAN PLT VOLUME 8.2 fl (7.5-11.1); MONO % 13.5 % (3.8-10.2); NEUT % 70.8 % (42.8-82.8); PLATELET COUNT 95 K/MM3 (134-434); RDW 12.8 % (11.9-15.9); WHITE BLOOD COUNT 3.2 K/mm3 (4.0-10.0)
[2020-11-29 07:58] LABS: ALBUMIN 2.8 g/dl (3.4-5.0); BLOOD UREA NITROGEN 4.4 mg/dL (7-18); MAGNESIUM 1.8 mg/dL (1.8-2.4)
[2020-11-29 08:01] LABS: CREATININE 0.5 mg/dL (0.55-1.3); PHOSPHOROUS 3.5 mg/dL (2.5-4.9)
[2020-11-29 08:02] LABS: TOT PROT 6.3 g/dl (6.4-8.2)
[2020-11-29] MEDS ORDERED: INSULIN (LEVEMIR) 100 UNITS/ML UNITS SQ SCH ×2 (08:15→10:00)
[2020-11-29] MEDS: ENOXAPARIN NA (PORCINE) 40 MG/0.4 ML DISP.SYRIN SQ SCH (09:03)
[2020-11-29] MEDS: SODIUM CHLORIDE 1,000 ML IV SCH (09:03)
[2020-11-29] MEDS: THIAMINE HCL 100 MG TABLET (FP) PO SCH (09:04)
[2020-11-29] MEDS: FOLIC ACID 1 MG TABLET (FP) PO SCH (09:04)
[2020-11-29] MEDS: PANTOPRAZOLE 20 MG TABLET PO SCH (09:04)
[2020-11-29] MEDS ORDERED: POTASSIUM CHLORIDE TABS 20 MEQ TABLET.ER (FP) PO ONE (09:41)
[2020-11-29] MEDS: LIDOCAINE PATCH REMOVAL MC SCH (22:21)
[2020-11-30] MEDS: glipiZIDE-XL 5 MG TAB.ER.24 PO SCH (06:32)
[2020-11-30] MEDS: INSULIN SLIDING SCALE (NOVOLOG) 1 VIAL SQ SCH ×4 (06:35→21:44)
[2020-11-30 07:04] LABS: HEMATOCRIT 37.6 % (35.4-49); HEMOGLOBIN 13.4 GM/dL (11.7-16.9); MCH 35.2 pg (25.7-33.7); MCHC 35.6 g/dl (32.0-35.9); MEAN CELL VOLUME 98.9 fl (80-96); MEAN PLT VOLUME 8.3 fl (7.5-11.1); PLATELET COUNT 98 K/MM3 (134-434); RDW 12.5 % (11.9-15.9); WHITE BLOOD COUNT 3.1 K/mm3 (4.0-10.0)
[2020-11-30 07:29] LABS: ALBUMIN 2.9 g/dl (3.4-5.0); CALCIUM 8.1 mg/dL (8.5-10.1)
[2020-11-30 07:32] LABS: CREATININE 0.6 mg/dL (0.55-1.3)
[2020-11-30 07:34] LABS: BILIRUBIN,TOTAL 0.9 mg/dL (0.2-1)
[2020-11-30 07:35] LABS: TOT PROT 6.6 g/dl (6.4-8.2)
[2020-11-30] MEDS: THIAMINE HCL 100 MG TABLET (FP) PO SCH (09:22)
[2020-11-30] MEDS: FOLIC ACID 1 MG TABLET (FP) PO SCH (09:22)
[2020-11-30] MEDS: PANTOPRAZOLE 20 MG TABLET PO SCH (09:22)
[2020-11-30] MEDS: ENOXAPARIN NA (PORCINE) 40 MG/0.4 ML DISP.SYRIN SQ SCH (09:22)
[2020-11-30 11:46] VITALS: BMI 20.2
[2020-11-30] MEDS: LIDOCAINE PATCH REMOVAL MC SCH (21:45)
[2020-12-01] MEDS: glipiZIDE-XL 5 MG TAB.ER.24 PO SCH (06:18)
[2020-12-01] MEDS: INSULIN SLIDING SCALE (NOVOLOG) 1 VIAL SQ SCH ×4 (06:18→21:55)
[2020-12-01] MEDS: FOLIC ACID 1 MG TABLET (FP) PO SCH (09:24)
[2020-12-01] MEDS: THIAMINE HCL 100 MG TABLET (FP) PO SCH (09:24)
[2020-12-01] MEDS: ENOXAPARIN NA (PORCINE) 40 MG/0.4 ML DISP.SYRIN SQ SCH (09:24)
[2020-12-01] MEDS: PANTOPRAZOLE 20 MG TABLET PO SCH (09:24)
[2020-12-01 10:36] LABS: ALBUMIN 3.1 g/dl (3.4-5.0); BLOOD UREA NITROGEN 8.7 mg/dL (7-18); CALCIUM 8.7 mg/dL (8.5-10.1)
[2020-12-01 10:37] LABS: BILIRUBIN,TOTAL 0.9 mg/dL (0.2-1); MAGNESIUM 1.9 mg/dL (1.8-2.4)
[2020-12-01 10:38] LABS: CREATININE 0.7 mg/dL (0.55-1.3)
[2020-12-01 10:39] LABS: PHOSPHOROUS 3.4 mg/dL (2.5-4.9)
[2020-12-01] MEDS ORDERED: INSULIN (LEVEMIR) 100 UNITS/ML UNITS SQ ONE (11:38)
[2020-12-01] MEDS: INSULIN (LEVEMIR) 100 UNITS/ML UNITS SQ SCH (21:54)
[2020-12-02] MEDS: INSULIN SLIDING SCALE (NOVOLOG) 1 VIAL SQ SCH ×4 (06:22→21:09)
[2020-12-02] MEDS ORDERED: INSULIN (LEVEMIR) 100 UNITS/ML UNITS SQ SCH ×2 (07:00→10:00)
[2020-12-02 07:44] LABS: INR 0.99 (0.83-1.09)
[2020-12-02 08:03] LABS: ALBUMIN 3.1 g/dl (3.4-5.0)
[2020-12-02 08:05] LABS: BILIRUBIN,DIRECT 0.4 mg/dL (0.0-0.2)
[2020-12-02 08:08] LABS: BILIRUBIN,TOTAL 0.9 mg/dL (0.2-1)
[2020-12-02] MEDS: FOLIC ACID 1 MG TABLET (FP) PO SCH (10:10)
[2020-12-02] MEDS: THIAMINE HCL 100 MG TABLET (FP) PO SCH (10:11)
[2020-12-02] MEDS: ENOXAPARIN NA (PORCINE) 40 MG/0.4 ML DISP.SYRIN SQ SCH (10:11)
[2020-12-02] MEDS: PANTOPRAZOLE 20 MG TABLET PO SCH (10:11)
[2020-12-02 15:07] LABS: HEP B CORE AB, TOT Negative (Negative)
[2020-12-02] MEDS: INSULIN (LEVEMIR) 100 UNITS/ML UNITS SQ SCH (21:10)
[2020-12-03] MEDS: INSULIN SLIDING SCALE (NOVOLOG) 1 VIAL SQ SCH ×3 (06:17→16:55)
[2020-12-03] MEDS ORDERED: INSULIN (LEVEMIR) 100 UNITS/ML UNITS SQ SCH ×2 (07:00→22:00)
[2020-12-03 07:33] LABS: HEMATOCRIT 36.6 % (35.4-49); HEMOGLOBIN 12.5 GM/dL (11.7-16.9); MCH 34.2 pg (25.7-33.7); MCHC 34.2 g/dl (32.0-35.9); MEAN CELL VOLUME 99.9 fl (80-96); MEAN PLT VOLUME 8.7 fl (7.5-11.1); PLATELET COUNT 112 K/MM3 (134-434); RBC 3.67 M/mm3 (4.00-5.60); RDW 12.8 % (11.9-15.9); WHITE BLOOD COUNT 4.3 K/mm3 (4.0-10.0)
[2020-12-03 08:11] LABS: BLOOD UREA NITROGEN 7.3 mg/dL (7-18); CALCIUM 8.6 mg/dL (8.5-10.1); MAGNESIUM 1.9 mg/dL (1.8-2.4)
[2020-12-03 08:14] LABS: BILIRUBIN,DIRECT 0.4 mg/dL (0.0-0.2); BILIRUBIN,TOTAL 0.7 mg/dL (0.2-1); CREATININE 0.6 mg/dL (0.55-1.3); PHOSPHOROUS 4.1 mg/dL (2.5-4.9); TOT PROT 6.5 g/dl (6.4-8.2)
[2020-12-03] MEDS ORDERED: PANTOPRAZOLE 20 MG TABLET PO SCH (10:00)
[2020-12-03] MEDS ORDERED: FOLIC ACID 1 MG TABLET (FP) PO SCH (10:00)
[2020-12-03] MEDS ORDERED: ENOXAPARIN NA (PORCINE) 40 MG/0.4 ML DISP.SYRIN SQ SCH (10:00)
[2020-12-03] MEDS ORDERED: THIAMINE HCL 100 MG TABLET (FP) PO SCH (10:00)
[2020-12-03 13:37] VITALS: BP 103/59; PULSE 66; TEMP 98.8
[2020-12-03] MEDS ORDERED: INSULIN SLIDING SCALE (NOVOLOG) 1 VIAL SQ ONE (16:42)
[2020-12-03 17:09] LABS: GLIADIN ANTIBODY IGA 14 units (0-19); GLIADIN ANTIBODY IGG 2 units (0-19); TRANSGLUTAMINASE IGG < 2 U/mL (0-5)
[2020-12-04] MEDS ORDERED: INSULIN (LEVEMIR) 100 UNITS/ML UNITS SQ SCH ×2 (07:00)
== END 2020-12-03 19:05 | disposition home or self-care (01) | DRG 420 ==
LOC: JER 13:44 → JERBED 21:45 → J4S 23:07
PROVIDERS: ADMIT Hospitalist; ATTEND Internal Medicine
DX: E11.65 Type 2 diabetes mellitus with hyperglycemia (principal); R63.4 Abnormal weight loss; Z68.20 Body mass index [BMI] 20.0-20.9, adult; E11.9 Type 2 diabetes mellitus without complications; I10 Essential (primary) hypertension; E86.0 Dehydration; R94.5 Abnormal results of liver function studies; F10.20 Alcohol dependence, uncomplicated; E87.6 Hypokalemia; E83.119 Hemochromatosis, unspecified; K70.10 Alcoholic hepatitis without ascites; K75.81 Nonalcoholic steatohepatitis (NASH); D61.818 Other pancytopenia; D69.6 Thrombocytopenia, unspecified; D64.9 Anemia, unspecified; R07.89 Other chest pain; Z91.14 Patient's other noncompliance with medication regimen
CPT/HCPCS: 36415; 71045-TC-FY; 76705-TC; 80048; 80053; 80061; 80076; 80307; 81003; 82010; 82105; 82140; 82550; 82607; 82728; 82784; 82803; 82962; 83036; 83516; 83540; 83550; 83690; 83721; 83735; 84100; 84484; 85025; 85027; 85610; 86038; 86704; 86705; 86706; 86707; 86803; 87086; 93005; 93010; 99285-25; C9803; G0008; Q2036; U0003; U0005

== ENCOUNTER 2021-10-01 19:28 | Inpatient (IN) | payer OTHER ==
[2021-10-01] MEDS ORDERED: SODIUM CHLORIDE 1,000 ML IV STA (20:09)
[2021-10-01] MEDS ORDERED: PANTOPRAZOLE SODIUM 40 MG VIAL IVPUSH ONE (20:10)
[2021-10-01] MEDS ORDERED: ONDANSETRON 4 MG/2 ML VIAL IVPUSH ONE (20:10)
[2021-10-01] MEDS ORDERED: PANTOPRAZOLE SODIUM 40 MG VIAL ONE (20:17)
[2021-10-01] MEDS ORDERED: ONDANSETRON 4 MG/2 ML VIAL ONE (20:17)
[2021-10-01 20:43] LABS: BASO % 0.1 % (0-2.0); EOS % 0.6 % (0-4.5); HEMATOCRIT 27.3 % (35.4-49); HEMOGLOBIN 8.5 GM/dL (11.7-16.9); LYMPH % 10.4 % (8-40); MCH 23.6 pg (25.7-33.7); MCHC 31.2 g/dl (32.0-35.9); MEAN CELL VOLUME 75.7 fl (80-96); MEAN PLT VOLUME 7.8 fl (7.5-11.1); MONO % 7.4 % (3.8-10.2); NEUT % 81.5 % (42.8-82.8); PLATELET COUNT 127 10^3/uL (134-434); RBC 3.61 M/mm3 (4.00-5.60); RDW 21.6 % (11.9-15.9); WHITE BLOOD COUNT 11.3 K/mm3 (4.0-10.0)
[2021-10-01 20:50] LABS: INR 1.15 (0.83-1.09); PROTHROMBIN TIME (PATIENT) 13.3 SEC (9.7-13.0)
[2021-10-01 20:52] LABS: ACTIVATED PTT 25.4 SECONDS (25.2-36.5)
[2021-10-01 21:05] LABS: CHLORIDE 102 mmol/L (98-107); SODIUM 136 mmol/L (136-145)
[2021-10-01 21:08] LABS: CALCIUM 8.1 mg/dL (8.5-10.1); GLUCOSE,RANDOM 398 mg/dL (74-106); LIPASE 248 U/L (73-393)
[2021-10-01 21:09] LABS: ALBUMIN 3.2 g/dl (3.4-5.0); ANION GAP 11 MMOL/L (8-16); BLOOD UREA NITROGEN 18.5 mg/dL (7-18); CO2 23 mmol/L (21-32)
[2021-10-01 21:11] LABS: CREATININE 0.8 mg/dL (0.55-1.3); SGPT/ALT 46 U/L (13-61)
[2021-10-01 21:12] LABS: SGOT/AST 25 U/L (15-37)
[2021-10-01 21:13] LABS: ALK PHOS 236 U/L (45-117); BILIRUBIN,TOTAL 0.3 mg/dL (0.2-1)
[2021-10-01 21:24] LABS: VENOUS BASE EXCESS -4.4 mmol/L (-2-2); VENOUS O2 SATURATION 59.3 % (70-80); VENOUS PCO2 39.6 mmHg (38-52); VENOUS PH 7.342 (7.310-7.410)
[2021-10-01 21:28] LABS: URINE APPEARANCE CLEAR; URINE BILIRUBIN NEGATIVE (NEGATIVE); URINE COLOR YELLOW; URINE GLUCOSE (UA) 3+ (NEGATIVE); URINE KETONE NEGATIVE (NEGATIVE); URINE LEUK ESTERASE NEGATIVE (NEGATIVE); URINE NITRITE NEGATIVE (NEGATIVE); URINE PROTEIN NEGATIVE (NEGATIVE); URINE UROBILINOGEN 0.2 mg/dL (0.2-1.0)
[2021-10-01 21:30] LABS: ANISOCYTOSIS 3+; MACROCYTOSIS 1+; PLATELET ESTIMATE DECREASED
[2021-10-01 21:33] LABS: MAGNESIUM 1.6 mg/dL (1.8-2.4)
[2021-10-01] MEDS ORDERED: OCTREOTIDE ACETATE 50 MCG/1 ML - 1 ML VIAL IVPUSH ONE (21:48)
[2021-10-01] MEDS ORDERED: KCL 10 MEQ IVPB 10 MEQ/100 ML INFUS.BAG IVPB ONE ×2 (21:51→22:59)
[2021-10-01] MEDS: KCL 10 MEQ IVPB 10 MEQ/100 ML INFUS.BAG IVPB SCH ×2 (21:56→23:31)
[2021-10-01] MEDS ORDERED: MAGNESIUM SULF 50% (8.12 MEQ/2 ML-1 GM VIAL) IVPB ONE (22:49)
[2021-10-01] MEDS ORDERED: OCTREOTIDE ACETATE 100 MCG/1 ML ONE (23:17)
[2021-10-01 23:23] LABS: BASO % 0.2 % (0-2.0); EOS % 0.1 % (0-4.5); HEMATOCRIT 23.7 % (35.4-49); HEMOGLOBIN 7.5 GM/dL (11.7-16.9); LYMPH % 8.8 % (8-40); MCH 23.7 pg (25.7-33.7); MCHC 31.9 g/dl (32.0-35.9); MEAN CELL VOLUME 74.5 fl (80-96); MEAN PLT VOLUME 7.4 fl (7.5-11.1); MONO % 3.8 % (3.8-10.2); NEUT % 87.1 % (42.8-82.8); PLATELET COUNT 100 10^3/uL (134-434); RBC 3.18 M/mm3 (4.00-5.60); RDW 21.2 % (11.9-15.9); WHITE BLOOD COUNT 7.7 K/mm3 (4.0-10.0)
[2021-10-01] MEDS ORDERED: CALCIUM GLUCONATE 10% - 1,000 MG/10 ML VIAL IVPB ONE (23:26)
[2021-10-01] MEDS: OCTREOTIDE ACETATE 200 MCG, OCTREOTIDE ACETATE 1,000 MCG in DEXTROSE 5%-WATER - 496 ML IVPB SCH (23:39)
[2021-10-01] MEDS ORDERED: MAGNESIUM SULFATE IN WATER 2 GM/50 ML IVPB IVPB ONE (23:44)
[2021-10-01] MEDS: PANTOPRAZOLE SODIUM 80 MG in SODIUM CHLORIDE 100 ML IVPB SCH (23:48)
[2021-10-02] MEDS: KCL 10 MEQ IVPB 10 MEQ/100 ML INFUS.BAG IVPB SCH (02:44)
[2021-10-02] MEDS: INSULIN SLIDING SCALE (NOVOLOG) 1 VIAL SQ SCH ×4 (06:05→22:04)
[2021-10-02 07:56] LABS: INR 1.21 (0.83-1.09); PROTHROMBIN TIME (PATIENT) 13.9 SEC (9.7-13.0)
[2021-10-02 08:00] LABS: ACTIVATED PTT 24.5 SECONDS (25.2-36.5)
[2021-10-02 08:06] LABS: BASO % 0.2 % (0-2.0); EOS % 0.7 % (0-4.5); HEMATOCRIT 28.5 % (35.4-49); HEMOGLOBIN 9.4 GM/dL (11.7-16.9); LYMPH % 18.3 % (8-40); MCH 25.1 pg (25.7-33.7); MCHC 32.8 g/dl (32.0-35.9); MEAN CELL VOLUME 76.4 fl (80-96); MEAN PLT VOLUME 7.9 fl (7.5-11.1); MONO % 11.6 % (3.8-10.2); NEUT % 69.2 % (42.8-82.8); PLATELET COUNT 85 10^3/uL (134-434); RBC 3.73 M/mm3 (4.00-5.60); RDW 20.8 % (11.9-15.9)
[2021-10-02 08:10] LABS: ALBUMIN 3.2 g/dl (3.4-5.0); CALCIUM 8.3 mg/dL (8.5-10.1)
[2021-10-02 08:11] LABS: BLOOD UREA NITROGEN 17.3 mg/dL (7-18); MAGNESIUM 1.8 mg/dL (1.8-2.4)
[2021-10-02 08:14] LABS: CREATININE 0.7 mg/dL (0.55-1.3); PHOSPHOROUS 3.4 mg/dL (2.5-4.9)
[2021-10-02 08:15] LABS: BILIRUBIN,TOTAL 0.7 mg/dL (0.2-1)
[2021-10-02] MEDS: MUPIROCIN 2% TOPICAL OINTMENT FOR DECOLONIZATION NS SCH ×2 (10:00→21:51)
[2021-10-02] MEDS: PANTOPRAZOLE SODIUM 40 MG VIAL IVPUSH SCH ×2 (10:07→21:51)
[2021-10-02] MEDS: PANTOPRAZOLE SODIUM 80 MG in SODIUM CHLORIDE 100 ML IVPB SCH (10:16)
[2021-10-02] MEDS: NADOLOL 20 MG TABLET (FP) PO SCH (11:45)
[2021-10-02 13:24] LABS: BILIRUBIN,DIRECT 0.1 mg/dL (0.0-0.2); IRON SERUM 50 ug/dL (50-175); TOTAL IRON BINDING CAPACITY 376 ug/dL (250-450)
[2021-10-02 13:59] LABS: LDH 161 U/L (87-246)
[2021-10-02] MEDS: ATORVASTATIN CA 10 MG TABLET (FP) PO SCH (21:51)
[2021-10-02] MEDS: CHLORHEXIDINE GLUCONATE 4% CLEANSER FOR DECOLONIZATION TP SCH (21:51)
[2021-10-02] MEDS: OCTREOTIDE ACETATE 200 MCG, OCTREOTIDE ACETATE 1,000 MCG in DEXTROSE 5%-WATER - 496 ML IVPB SCH (21:51)
[2021-10-02 22:49] LABS: BASO % 0.5 % (0-2.0); EOS % 1.6 % (0-4.5); HEMATOCRIT 27.3 % (35.4-49); HEMOGLOBIN 9.2 GM/dL (11.7-16.9); LYMPH % 30.4 % (8-40); MCH 25.4 pg (25.7-33.7); MCHC 33.5 g/dl (32.0-35.9); MEAN CELL VOLUME 75.8 fl (80-96); MONO % 9.6 % (3.8-10.2); NEUT % 57.9 % (42.8-82.8); PLATELET COUNT 78 10^3/uL (134-434); RBC 3.61 M/mm3 (4.00-5.60); RDW 20.6 % (11.9-15.9)
[2021-10-03] MEDS: OCTREOTIDE ACETATE 200 MCG, OCTREOTIDE ACETATE 1,000 MCG in DEXTROSE 5%-WATER - 496 ML IVPB SCH ×2 (01:50→22:40)
[2021-10-03] MEDS: INSULIN SLIDING SCALE (NOVOLOG) 1 VIAL SQ SCH ×4 (06:53→21:34)
[2021-10-03 06:58] LABS: BASO % 0.6 % (0-2.0); EOS % 2.3 % (0-4.5); HEMATOCRIT 27.4 % (35.4-49); HEMOGLOBIN 9.4 GM/dL (11.7-16.9); LYMPH % 30.1 % (8-40); MCH 25.7 pg (25.7-33.7); MCHC 34.2 g/dl (32.0-35.9); MEAN CELL VOLUME 75.2 fl (80-96); MEAN PLT VOLUME 7.7 fl (7.5-11.1); PLATELET COUNT 83 10^3/uL (134-434); RBC 3.65 M/mm3 (4.00-5.60); RDW 20.6 % (11.9-15.9); WHITE BLOOD COUNT 4.6 K/mm3 (4.0-10.0)
[2021-10-03 07:16] LABS: ALBUMIN 3.2 g/dl (3.4-5.0); BLOOD UREA NITROGEN 9.1 mg/dL (7-18); MAGNESIUM 1.7 mg/dL (1.8-2.4)
[2021-10-03 07:19] LABS: PHOSPHOROUS 3.8 mg/dL (2.5-4.9)
[2021-10-03 07:20] LABS: BILIRUBIN,TOTAL 0.6 mg/dL (0.2-1); CREATININE 0.6 mg/dL (0.55-1.3)
[2021-10-03] MEDS: MUPIROCIN 2% TOPICAL OINTMENT FOR DECOLONIZATION NS SCH ×2 (10:47→21:29)
[2021-10-03] MEDS: NADOLOL 20 MG TABLET (FP) PO SCH (10:47)
[2021-10-03] MEDS: PANTOPRAZOLE SODIUM 40 MG VIAL IVPUSH SCH ×2 (10:47→21:30)
[2021-10-03] MEDS: CHLORHEXIDINE GLUCONATE 4% CLEANSER FOR DECOLONIZATION TP SCH (21:29)
[2021-10-03] MEDS: ATORVASTATIN CA 10 MG TABLET (FP) PO SCH (21:30)
[2021-10-04] MEDS: INSULIN SLIDING SCALE (NOVOLOG) 1 VIAL SQ SCH ×4 (06:12→22:32)
[2021-10-04 07:46] LABS: BASO % 0.4 % (0-2.0); EOS % 2.4 % (0-4.5); HEMOGLOBIN 9.7 GM/dL (11.7-16.9); MCH 25.6 pg (25.7-33.7); MCHC 33.3 g/dl (32.0-35.9); MEAN CELL VOLUME 76.9 fl (80-96); MEAN PLT VOLUME 8.3 fl (7.5-11.1); MONO % 13.1 % (3.8-10.2); NEUT % 50.1 % (42.8-82.8); PLATELET COUNT 102 10^3/uL (134-434); RBC 3.77 M/mm3 (4.00-5.60); RDW 20.3 % (11.9-15.9); WHITE BLOOD COUNT 5.1 K/mm3 (4.0-10.0)
[2021-10-04 08:09] LABS: CALCIUM 8.1 mg/dL (8.5-10.1)
[2021-10-04 08:10] LABS: MAGNESIUM 1.8 mg/dL (1.8-2.4)
[2021-10-04 08:12] LABS: BLOOD UREA NITROGEN 7.6 mg/dL (7-18)
[2021-10-04 08:13] LABS: CREATININE 0.7 mg/dL (0.55-1.3); PHOSPHOROUS 4.4 mg/dL (2.5-4.9)
[2021-10-04 08:14] LABS: BILIRUBIN,TOTAL 0.7 mg/dL (0.2-1); TOT PROT 6.1 g/dl (6.4-8.2)
[2021-10-04] MEDS: MUPIROCIN 2% TOPICAL OINTMENT FOR DECOLONIZATION NS SCH ×2 (10:27→22:20)
[2021-10-04] MEDS: NADOLOL 20 MG TABLET (FP) PO SCH (10:27)
[2021-10-04] MEDS: PANTOPRAZOLE SODIUM 40 MG VIAL IVPUSH SCH ×2 (10:27→22:20)
[2021-10-04] MEDS: CHLORHEXIDINE GLUCONATE 4% CLEANSER FOR DECOLONIZATION TP SCH (22:20)
[2021-10-04] MEDS: ATORVASTATIN CA 10 MG TABLET (FP) PO SCH (22:20)
[2021-10-05] MEDS: INSULIN SLIDING SCALE (NOVOLOG) 1 VIAL SQ SCH ×4 (06:09→21:42)
[2021-10-05] MEDS ORDERED: NADOLOL 20 MG TABLET (FP) PO SCH ×3 (10:00)
[2021-10-05] MEDS ORDERED: MUPIROCIN 2% TOPICAL OINTMENT FOR DECOLONIZATION NS SCH (10:00)
[2021-10-05] MEDS ORDERED: PANTOPRAZOLE SODIUM 40 MG VIAL IVPUSH SCH (10:00)
[2021-10-05 10:28] LABS: ALBUMIN 2.8 g/dl (3.4-5.0); BLOOD UREA NITROGEN 5.9 mg/dL (7-18); CALCIUM 7.8 mg/dL (8.5-10.1); MAGNESIUM 1.7 mg/dL (1.8-2.4)
[2021-10-05 10:31] LABS: CREATININE 0.9 mg/dL (0.55-1.3); PHOSPHOROUS 3.8 mg/dL (2.5-4.9)
[2021-10-05 10:33] LABS: BILIRUBIN,TOTAL 0.6 mg/dL (0.2-1)
[2021-10-05 10:34] LABS: BASO % 0.5 % (0-2.0); HEMOGLOBIN 9.9 GM/dL (11.7-16.9); LYMPH % 25.8 % (8-40); MCH 25.2 pg (25.7-33.7); MCHC 31.8 g/dl (32.0-35.9); MEAN PLT VOLUME 8.3 fl (7.5-11.1); MONO % 11.2 % (3.8-10.2); NEUT % 60.5 % (42.8-82.8); PLATELET COUNT 119 10^3/uL (134-434); RBC 3.92 M/mm3 (4.00-5.60); RDW 20.3 % (11.9-15.9); WHITE BLOOD COUNT 4.7 K/mm3 (4.0-10.0)
[2021-10-05] MEDS: NADOLOL 20 MG TABLET (FP) PO SCH (10:41)
[2021-10-05] MEDS: PANTOPRAZOLE 40 MG TABLET PO SCH (10:42)
[2021-10-05] MEDS ORDERED: MAGNESIUM OXIDE 400 MG TABLET (FP) PO ONE (15:23)
[2021-10-05] MEDS ORDERED: INSULIN (NOVOLOG) ASPART 100 UNITS/ML 10ML VIAL ONE (21:16)
[2021-10-05] MEDS: ATORVASTATIN CA 10 MG TABLET (FP) PO SCH (21:36)
[2021-10-05] MEDS ORDERED: CHLORHEXIDINE GLUCONATE 4% CLEANSER FOR DECOLONIZATION TP SCH (22:00)
[2021-10-06] MEDS: INSULIN SLIDING SCALE (NOVOLOG) 1 VIAL SQ SCH ×4 (06:20→21:32)
[2021-10-06 09:00] LABS: BASO % 0.5 % (0-2.0); EOS % 3.2 % (0-4.5); HEMATOCRIT 32.9 % (35.4-49); HEMOGLOBIN 10.6 GM/dL (11.7-16.9); LYMPH % 39.1 % (8-40); MCH 25.1 pg (25.7-33.7); MCHC 32.3 g/dl (32.0-35.9); MEAN CELL VOLUME 77.9 fl (80-96); MEAN PLT VOLUME 7.9 fl (7.5-11.1); NEUT % 45.2 % (42.8-82.8); PLATELET COUNT 150 10^3/uL (134-434); RBC 4.23 M/mm3 (4.00-5.60); RDW 20.4 % (11.9-15.9); WHITE BLOOD COUNT 4.1 K/mm3 (4.0-10.0)
[2021-10-06 09:32] LABS: ALBUMIN 3.3 g/dl (3.4-5.0); BLOOD UREA NITROGEN 5.6 mg/dL (7-18); CALCIUM 8.6 mg/dL (8.5-10.1); MAGNESIUM 1.9 mg/dL (1.8-2.4)
[2021-10-06 09:35] LABS: CREATININE 0.8 mg/dL (0.55-1.3)
[2021-10-06 09:37] LABS: BILIRUBIN,TOTAL 0.8 mg/dL (0.2-1)
[2021-10-06] MEDS: NADOLOL 20 MG TABLET (FP) PO SCH (09:53)
[2021-10-06] MEDS: PANTOPRAZOLE 40 MG TABLET PO SCH (10:04)
[2021-10-06] MEDS ORDERED: DEXTROSE 50%-WATER 25 GM/50 ML DISP.SYRIN IVPUSH PRN (15:34)
[2021-10-06] MEDS: INSULIN (LEVEMIR) 100 UNITS/ML UNITS SQ SCH (21:26)
[2021-10-06] MEDS: ATORVASTATIN CA 10 MG TABLET (FP) PO SCH (21:28)
[2021-10-06] MEDS ORDERED: INSULIN (NOVOLOG) ASPART 100 UNITS/ML 10ML VIAL ONE (21:29)
[2021-10-07] MEDS: INSULIN (LEVEMIR) 100 UNITS/ML UNITS SQ SCH (06:22)
[2021-10-07] MEDS: INSULIN SLIDING SCALE (NOVOLOG) 1 VIAL SQ SCH ×4 (06:25→21:53)
[2021-10-07] MEDS: PANTOPRAZOLE 40 MG TABLET PO SCH (10:47)
[2021-10-07] MEDS: NADOLOL 20 MG TABLET (FP) PO SCH (10:47)
[2021-10-07] MEDS ORDERED: INSULIN (NOVOLOG) ASPART 100 UNITS/ML 10ML VIAL ONE ×2 (11:36→21:51)
[2021-10-07] MEDS ORDERED: INSULIN (LEVEMIR) 100 UNITS/ML UNITS SQ SCH (14:12)
[2021-10-07] MEDS: ATORVASTATIN CA 10 MG TABLET (FP) PO SCH (21:43)
[2021-10-07 21:54] VITALS: BMI 20.1
[2021-10-08] MEDS: INSULIN SLIDING SCALE (NOVOLOG) 1 VIAL SQ SCH ×2 (06:45→11:33)
[2021-10-08] MEDS ORDERED: PIOGLITAZONE HCL 30 MG TABLET PO SCH (07:00)
[2021-10-08] MEDS ORDERED: INSULIN (LEVEMIR) 100 UNITS/ML UNITS SQ SCH ×2 (07:00→22:00)
[2021-10-08 09:09] LABS: HEMOGLOBIN 10.1 GM/dL (11.7-16.9); MCH 25.3 pg (25.7-33.7); MCHC 32.5 g/dl (32.0-35.9); MEAN CELL VOLUME 77.8 fl (80-96); MEAN PLT VOLUME 8.2 fl (7.5-11.1); PLATELET COUNT 140 10^3/uL (134-434); RBC 3.99 M/mm3 (4.00-5.60); RDW 20.2 % (11.9-15.9); WHITE BLOOD COUNT 4.6 K/mm3 (4.0-10.0)
[2021-10-08] MEDS: NADOLOL 20 MG TABLET (FP) PO SCH (09:29)
[2021-10-08] MEDS: PANTOPRAZOLE 40 MG TABLET PO SCH (09:29)
[2021-10-08 09:33] LABS: CALCIUM 8.6 mg/dL (8.5-10.1)
[2021-10-08 09:34] LABS: ALBUMIN 3.4 g/dl (3.4-5.0); BLOOD UREA NITROGEN 10.9 mg/dL (7-18)
[2021-10-08 09:36] LABS: CREATININE 0.8 mg/dL (0.55-1.3)
[2021-10-08 09:38] LABS: BILIRUBIN,TOTAL 0.7 mg/dL (0.2-1)
[2021-10-08 15:06] VITALS: BP 114/73; PULSE 69; TEMP 98.4
== END 2021-10-08 16:04 | disposition home or self-care (01) | DRG 280 ==
LOC: JER 19:28 → JERBED 23:52 → JICU 10-02 00:33 → J6S 10-04 23:25
PROVIDERS: ADMIT Internal Medicine Pulmonary Disease; ATTEND Internal Medicine
PROC: 0DC68ZZ Extirpation of Matter from Stomach, Via Natural or Artificial Opening Endoscopic (ICD-10-PCS; 2021-10-02)
PROC: 30233N1 Transfusion of Nonautologous Red Blood Cells into Peripheral Vein, Percutaneous Approach (ICD-10-PCS; 2021-10-02)
PROC: 06L38CZ Occlusion of Esophageal Vein with Extraluminal Device, Via Natural or Artificial Opening Endoscopic (ICD-10-PCS; principal; 2021-10-02 07:30)
DX: K70.30 Alcoholic cirrhosis of liver without ascites (principal); I85.11 Secondary esophageal varices with bleeding; I10 Essential (primary) hypertension; E78.5 Hyperlipidemia, unspecified; N20.0 Calculus of kidney; I83.90 Asymptomatic varicose veins of unspecified lower extremity; R00.1 Bradycardia, unspecified; R74.01 Elevation of levels of liver transaminase levels; I95.9 Hypotension, unspecified; F10.20 Alcohol dependence, uncomplicated; K70.10 Alcoholic hepatitis without ascites; Z22.7 Latent tuberculosis; D69.6 Thrombocytopenia, unspecified; K76.0 Fatty (change of) liver, not elsewhere classified; E11.65 Type 2 diabetes mellitus with hyperglycemia; E11.610 Type 2 diabetes mellitus with diabetic neuropathic arthropathy; E11.40 Type 2 diabetes mellitus with diabetic neuropathy, unspecified
CPT/HCPCS: 36415; 36430; 36511; 71045-TC-FY; 76705-TC; 80053; 80307; 81003; 82010; 82248; 82272; 82728; 82803; 82962; 83036; 83540; 83550; 83615; 83690; 83735; 84100; 84484; 85025; 85027; 85045; 85610; 85730; 86850; 86900; 86901; 86922; 93005; 93010; 99291; C9803-CS; P9038; P9058; U0003; U0005

== ENCOUNTER 2021-11-10 04:48 | Day surgery (SDC) | payer OTHER ==
[2021-11-10 10:46] LABS: BASO % 0.8 % (0-2.0); EOS % 1.5 % (0-4.5); HEMATOCRIT 28.4 % (35.4-49); HEMOGLOBIN 8.9 GM/dL (11.7-16.9); LYMPH % 40.1 % (8-40); MCH 22.8 pg (25.7-33.7); MCHC 31.4 g/dl (32.0-35.9); MEAN CELL VOLUME 72.4 fl (80-96); MEAN PLT VOLUME 7.3 fl (7.5-11.1); MONO % 14.2 % (3.8-10.2); NEUT % 43.4 % (42.8-82.8); PLATELET COUNT 188 10^3/uL (134-434); RBC 3.93 M/mm3 (4.00-5.60); RDW 20.7 % (11.9-15.9); WHITE BLOOD COUNT 4.6 K/mm3 (4.0-10.0)
[2021-11-10 10:53] LABS: INR 1.12 (0.83-1.09); PROTHROMBIN TIME (PATIENT) 12.9 SEC (9.7-13.0)
[2021-11-10 11:03] VITALS: BMI 25.2
[2021-11-10 11:06] LABS: CALCIUM 8.8 mg/dL (8.5-10.1)
[2021-11-10 11:09] LABS: CREATININE 0.7 mg/dL (0.55-1.3)
[2021-11-10 11:11] LABS: BILIRUBIN,TOTAL 0.6 mg/dL (0.2-1); TOT PROT 7.9 g/dl (6.4-8.2)
[2021-11-10 11:59] LABS: ANISOCYTOSIS 2+; MACROCYTOSIS 0; TARGET CELLS 1+
== END 2021-11-10 11:35 | disposition home or self-care (01) ==
LOC: JASU-ENDO 04:48
PROVIDERS: ATTEND Internal Medicine Gastroenterology
DX: Z53.8 Procedure and treatment not carried out for other reasons (principal)
CPT/HCPCS: 36415; 80053; 82962; 85025; 85610

== ENCOUNTER 2021-11-24 04:47 | Day surgery (SDC) | payer OTHER ==
[2021-11-20 15:01] VITALS: BMI 24.5
[2021-11-24 11:56] LABS: BASO % 0.8 % (0-2.0); EOS % 2.7 % (0-4.5); HEMOGLOBIN 8.7 GM/dL (11.7-16.9); LYMPH % 41.5 % (8-40); MCH 22.2 pg (25.7-33.7); MCHC 31.2 g/dl (32.0-35.9); MEAN PLT VOLUME 7.2 fl (7.5-11.1); PLATELET COUNT 120 10^3/uL (134-434); RBC 3.95 M/mm3 (4.00-5.60); RDW 20.6 % (11.9-15.9); WHITE BLOOD COUNT 3.4 K/mm3 (4.0-10.0)
[2021-11-24 12:02] LABS: INR 1.13 (0.83-1.09)
[2021-11-24 12:20] LABS: CALCIUM 8.6 mg/dL (8.5-10.1)
[2021-11-24 12:21] LABS: BLOOD UREA NITROGEN 12.4 mg/dL (7-18)
[2021-11-24 12:24] LABS: CREATININE 0.7 mg/dL (0.55-1.3)
[2021-11-24 13:20] VITALS: TEMP 98
[2021-11-24 13:54] VITALS: BP 149/68; PULSE 54
== END 2021-11-24 14:06 | disposition home or self-care (01) ==
LOC: JASU-ENDO 04:47
PROVIDERS: ATTEND Internal Medicine Gastroenterology
PROC: 0DB78ZX Excision of Stomach, Pylorus, Via Natural or Artificial Opening Endoscopic, Diagnostic (ICD-10-PCS; 2021-11-24)
PROC: 0W3P8ZZ Control Bleeding in Gastrointestinal Tract, Via Natural or Artificial Opening Endoscopic (ICD-10-PCS; 2021-11-24)
PROC: 0DB68ZX Excision of Stomach, Via Natural or Artificial Opening Endoscopic, Diagnostic (ICD-10-PCS; principal; 2021-11-24 11:15)
DX: I85.00 Esophageal varices without bleeding (principal); K29.50 Unspecified chronic gastritis without bleeding; B96.81 Helicobacter pylori [H. pylori] as the cause of diseases classified elsewhere; K70.30 Alcoholic cirrhosis of liver without ascites; E11.9 Type 2 diabetes mellitus without complications; I10 Essential (primary) hypertension
CPT/HCPCS: 36415; 80048; 85025; 85610; 86850; 86900; 86901; 88305-TC; 88342-TC

== ENCOUNTER 2021-12-12 18:21 | Emergency (ER) | payer OTHER ==
[2021-12-12 18:29] VITALS: TEMP 98.1; BMI 29.2
[2021-12-12] MEDS ORDERED: FAMOTIDINE 20 MG/50 ML IVPB 20 MG/50 ML MG IVPB ONE ×2 (19:38→19:49)
[2021-12-12] MEDS ORDERED: ACETAMINOPHEN 1000 MG/100 ML BAG IVPB ONE (19:38)
[2021-12-12] MEDS ORDERED: ACETAMINOPHEN INJECTION 100 ML IVPB ONE (19:48)
[2021-12-12 20:15] LABS: BASO % 0.9 % (0-2.0); HEMATOCRIT 28.7 % (35.4-49); HEMOGLOBIN 8.9 GM/dL (11.7-16.9); LYMPH % 33.3 % (8-40); MCH 21.4 pg (25.7-33.7); MEAN CELL VOLUME 69.2 fl (80-96); MEAN PLT VOLUME 8.3 fl (7.5-11.1); MONO % 18.2 % (3.8-10.2); NEUT % 45.6 % (42.8-82.8); PLATELET COUNT 131 10^3/uL (134-434); RBC 4.15 M/mm3 (4.00-5.60); RDW 20.3 % (11.9-15.9); WHITE BLOOD COUNT 4.1 K/mm3 (4.0-10.0)
[2021-12-12 20:34] LABS: BLOOD UREA NITROGEN 14.4 mg/dL (7-18); CALCIUM 8.8 mg/dL (8.5-10.1)
[2021-12-12 20:35] LABS: MAGNESIUM 1.9 mg/dL (1.8-2.4)
[2021-12-12 20:37] LABS: CREATININE 0.7 mg/dL (0.55-1.3)
[2021-12-12 20:39] LABS: BILIRUBIN,TOTAL 0.7 mg/dL (0.2-1); TOT PROT 7.9 g/dl (6.4-8.2)
[2021-12-12 21:06] LABS: ANISOCYTOSIS 1+; MACROCYTOSIS 0; PLATELET ESTIMATE NORMAL
[2021-12-12 23:07] LABS: HEMATOCRIT 28.8 % (35.4-49); MCH 21.7 pg (25.7-33.7); MCHC 31.3 g/dl (32.0-35.9); MEAN CELL VOLUME 69.1 fl (80-96); MEAN PLT VOLUME 7.5 fl (7.5-11.1); PLATELET COUNT 112 10^3/uL (134-434); RBC 4.16 M/mm3 (4.00-5.60); RDW 19.8 % (11.9-15.9); WHITE BLOOD COUNT 4.9 K/mm3 (4.0-10.0)
[2021-12-12 23:49] VITALS: BP 113/68; PULSE 76
== END 2021-12-12 23:49 | disposition home or self-care (01) ==
LOC: JER 18:21
PROC: 3E0333Z Introduction of Anti-inflammatory into Peripheral Vein, Percutaneous Approach (ICD-10-PCS; principal; 2021-12-12)
PROC: 3E033GC Introduction of Other Therapeutic Substance into Peripheral Vein, Percutaneous Approach (ICD-10-PCS; 2021-12-12)
DX: R07.89 Other chest pain (principal)
CPT/HCPCS: 36415; 71046-TC-FY; 80053; 83690; 83735; 84484; 85025; 85027; 93005; 93010; 99285-25

== ENCOUNTER 2022-03-09 04:16 | Day surgery (SDC) | payer OTHER ==
[2022-03-03 11:47] VITALS: BMI 23.8
[2022-03-09 11:01] VITALS: TEMP 98
[2022-03-09 11:34] VITALS: BP 140/70; PULSE 65; RESP 16
== END 2022-03-09 12:05 | disposition home or self-care (01) ==
LOC: JASU-ENDO 04:16
PROVIDERS: ATTEND Internal Medicine Gastroenterology
PROC: 0DJ08ZZ Inspection of Upper Intestinal Tract, Via Natural or Artificial Opening Endoscopic (ICD-10-PCS; principal; 2022-03-09 08:45)
DX: I85.00 Esophageal varices without bleeding (principal); E11.9 Type 2 diabetes mellitus without complications; Z79.84 Long term (current) use of oral hypoglycemic drugs
CPT/HCPCS: 82962; 86850; 86900; 86901; C9803-CS; U0003; U0005

== ENCOUNTER 2024-06-04 11:49 | Inpatient (IN) | payer OTHER ==
[2024-06-04 15:34] LABS: BASO % 0.1 % (0-2.0); HEMATOCRIT 45.9 % (35.4-49); HEMOGLOBIN 14.9 GM/dL (11.7-16.9); LYMPH % 8.4 % (8-40); MCH 29.8 pg (25.7-33.7); MCHC 32.4 g/dl (32.0-35.9); MEAN CELL VOLUME 92.1 fl (80-96); MEAN PLT VOLUME 7.4 fl (7.5-11.1); MONO % 10.1 % (3.8-10.2); NEUT % 81.4 % (42.8-82.8); PLATELET COUNT 245 10^3/uL (134-434); RBC 4.98 M/mm3 (4.00-5.60); RDW 14.1 % (11.9-15.9); WHITE BLOOD COUNT 11.2 K/mm3 (4.0-10.0)
[2024-06-04] MEDS: ACETAMINOPHEN 500 MG TABLET (FP) PO ONE (15:47)
[2024-06-04 15:52] LABS: CHLORIDE 99 mmol/L (98-107); POTASSIUM 4.3 mmol/L (3.5-5.1); SODIUM 134 mmol/L (136-145)
[2024-06-04 15:54] LABS: CALCIUM 9.2 mg/dL (8.5-10.1)
[2024-06-04 15:55] LABS: ALBUMIN 3.7 g/dl (3.4-5.0); ANION GAP 25 mmol/L (4-13); BLOOD UREA NITROGEN 12.6 mg/dL (7-18); CO2 10 mmol/L (21-32)
[2024-06-04 15:56] LABS: GLUCOSE,RANDOM 418 mg/dL (74-106)
[2024-06-04 15:58] LABS: CREATININE 1.1 mg/dL (0.55-1.3); SGOT/AST 13 U/L (15-37); SGPT/ALT 30 U/L (13-61)
[2024-06-04 15:59] LABS: BILIRUBIN,TOTAL 0.8 mg/dL (0.2-1); TOT PROT 8.2 g/dl (6.4-8.2)
[2024-06-04 16:00] LABS: ALK PHOS 139 U/L (45-117)
[2024-06-04] MEDS ORDERED: DEXTROSE 50%-WATER - 25 GM/50 ML VIAL IVPUSH PRN (16:31)
[2024-06-04] MEDS: KCL 10 MEQ IVPB 10 MEQ/100 ML INFUS.BAG IVPB SCH ×2 (16:47→17:07)
[2024-06-04] MEDS: SODIUM CHLORIDE 0.9% 500 ML INFUS.BAG IV ONE ×2 (16:51→17:43)
[2024-06-04 16:59] LABS: VENOUS BASE EXCESS -17.5 mmol/L (-2-2); VENOUS O2 SATURATION 34.7 % (70-80); VENOUS PCO2 27.4 mmHg (38-52)
[2024-06-04 17:04] LABS: VENOUS PH 7.159 (7.310-7.410)
[2024-06-04] MEDS ORDERED: INSULIN REGULAR HUMAN 100 UNITS/ML *VIAL ONE (17:06)
[2024-06-04] MEDS: INSULIN REGULAR HUMAN 100 UNITS/ML *VIAL* (FOR IVP) IVPUSH ONE (17:07)
[2024-06-04] MEDS ORDERED: KCL 10 MEQ IVPB 10 MEQ/100 ML INFUS.BAG IVPB ONE ×3 (17:07→19:28)
[2024-06-04] MEDS: INSULIN REGULAR 100 UNITS in SODIUM CHLORIDE 99 ML IVPB SCH ×2 (17:43→20:39)
[2024-06-04] MEDS ORDERED: SODIUM CHLORIDE 0.9%/KCL 20 MEQ/1,000 ML INFUS.BAG IV SCH (19:15)
[2024-06-04 20:24] LABS: POTASSIUM 3.8 mmol/L (3.5-5.1)
[2024-06-04 20:25] LABS: CALCIUM 8.1 mg/dL (8.5-10.1)
[2024-06-04 20:26] LABS: BLOOD UREA NITROGEN 8.6 mg/dL (7-18)
[2024-06-04 20:29] LABS: CREATININE 0.9 mg/dL (0.55-1.3); PHOSPHOROUS 1.3 mg/dL (2.5-4.9)
[2024-06-04 20:33] VITALS: BMI 22.4
[2024-06-04 20:35] LABS: METHADONE, UR NEGATIVE (NEGATIVE); OPIATES, URI NEGATIVE (NEGATIVE); URINE BARBITURATES NEGATIVE (NEGATIVE); URINE BENZODIAZEPINES NEGATIVE (NEGATIVE)
[2024-06-04 20:36] LABS: PHENCYCLIDINE,URINE NEGATIVE (NEGATIVE)
[2024-06-04 20:37] LABS: EPI CELLS 5 /uL (0-25.1); HYALINE CASTS 0 /uL (0-3.1); URINE APPEARANCE CLEAR; URINE BACTERIA 19 /uL (0-1359); URINE BILIRUBIN NEGATIVE (NEGATIVE); URINE COLOR YELLOW; URINE GLUCOSE (UA) 3+ (NEGATIVE); URINE KETONE 4+ (NEGATIVE); URINE LEUK ESTERASE NEGATIVE (NEGATIVE); URINE NITRITE NEGATIVE (NEGATIVE); URINE PROTEIN TRACE (NEGATIVE); URINE RBC 17 /uL (0-23.9); URINE UROBILINOGEN 0.2 mg/dL (0.2-1.0); URINE WBC 82 /uL (0-25.8)
[2024-06-04 20:39] LABS: COCAINE, UR NEGATIVE (NEGATIVE); URINE AMPHETAMINES NEGATIVE (NEGATIVE)
[2024-06-04] MEDS: PIPERACILLIN/TAZOB 3.375 GM 3.375 GM in DEXTROSE 5%-WATER - 50 ML IVPB SCH (20:53)
[2024-06-04] MEDS: D5-LR+20 MEQ KCL - 20 MEQ/1,000 ML INFUS.BAG IV SCH (21:16)
[2024-06-04] MEDS: MAGNESIUM 2GM/50ML STERILE WATER IVPB IVPB ONE (21:24)
[2024-06-04] MEDS: MUPIROCIN 2% TOPICAL OINTMENT FOR DECOLONIZATION NS SCH (21:24)
[2024-06-04] MEDS: CHLORHEXIDINE GLUCONATE 4% CLEANSER FOR DECOLONIZATION TP SCH (21:25)
[2024-06-04] MEDS: POTASSIUM PHOSPHATE 45 MM in SODIUM CHLORIDE 500 ML IVPB ONE (22:04)
[2024-06-04] MEDS: DOXYCYCLINE INJECTION 100 MG in DEXTROSE 5%-WATER 100 ML IVPB SCH (22:38)
[2024-06-04] MEDS: ACETAMINOPHEN 325 MG TABLET (FP) PO PRN (22:56)
[2024-06-04] MEDS: CEFTRIAXONE 1 G/50 ML PREMIX 50 ML IVPB SCH (22:57)
[2024-06-05 00:21] LABS: ALLENS TEST POSITIVE; ARTERIAL BLD GAS O2 SATURATION 96.8 % (95-98); ARTERIAL BLOOD GAS BASE EXCESS -8.4 mmol/L (-2-2); ARTERIAL BLOOD GAS PO2 91.4 mmHg (80-100)
[2024-06-05 00:33] LABS: CHLORIDE 117 mmol/L (98-107); POTASSIUM 5.2 mmol/L (3.5-5.1); SODIUM 140 mmol/L (136-145)
[2024-06-05 00:35] LABS: ANION GAP 7 mmol/L (4-13); BLOOD UREA NITROGEN 4.9 mg/dL (7-18); CO2 16 mmol/L (21-32)
[2024-06-05 00:36] LABS: GLUCOSE,RANDOM 206 mg/dL (74-106); MAGNESIUM 1.7 mg/dL (1.8-2.4)
[2024-06-05 00:39] LABS: CREATININE 0.6 mg/dL (0.55-1.3)
[2024-06-05] MEDS: CALCIUM GLUC IN NACL, ISO-OSM 1 GM/50 ML BAG IVPB ONE (01:37)
[2024-06-05] MEDS: POTASSIUM PHOSPHATE 15 MM in DEXTROSE 5%-WATER - 100 ML IVPB ONE (04:45)
[2024-06-05 05:21] LABS: CHLORIDE 109 mmol/L (98-107); SODIUM 135 mmol/L (136-145)
[2024-06-05 05:23] LABS: CO2 17 mmol/L (21-32); GLUCOSE,RANDOM 227 mg/dL (74-106); MAGNESIUM 1.6 mg/dL (1.8-2.4)
[2024-06-05 05:26] LABS: CREATININE 0.6 mg/dL (0.55-1.3)
[2024-06-05 05:34] LABS: ANION GAP 10 mmol/L (4-13); CALCIUM 7.7 mg/dL (8.5-10.1); PHOSPHOROUS > 9.0 mg/dL (2.5-4.9); POTASSIUM > 10.0 mmol/L (3.5-5.1)
[2024-06-05] MEDS: INSULIN ASPART SLIDING SCALE (NOVOLOG) 1 VIAL SQ SCH ×2 (06:23→17:02)
[2024-06-05 07:40] LABS: POTASSIUM 3.3 mmol/L (3.5-5.1)
[2024-06-05 07:42] LABS: CALCIUM 8.6 mg/dL (8.5-10.1); MAGNESIUM 1.6 mg/dL (1.8-2.4)
[2024-06-05 07:45] LABS: CREATININE 0.6 mg/dL (0.55-1.3)
[2024-06-05 07:46] LABS: PHOSPHOROUS 2.3 mg/dL (2.5-4.9)
[2024-06-05] MEDS: INSULIN (LEVEMIR) 100 UNITS/ML UNITS SQ ONE (07:58)
[2024-06-05] MEDS: MAGNESIUM SULFATE IN WATER 2 GM/50 ML IVPB IVPB ONE (08:07)
[2024-06-05] MEDS: NAPH,MB-DB/K PH,MBDB POWDER PACKET PO SCH ×2 (08:24→15:19)
[2024-06-05] MEDS: INSULIN (LEVEMIR) 100 UNITS/ML UNITS SQ SCH ×2 (08:25→21:20)
[2024-06-05] MEDS ORDERED: FLUTICASONE PROP 0.05% 16 GM NASAL SPRAY NS PRN ×2 (09:25→13:43)
[2024-06-05] MEDS: PANTOPRAZOLE 40 MG TABLET PO SCH (09:34)
[2024-06-05] MEDS: ENOXAPARIN NA (PORCINE) 40 MG/0.4 ML DISP.SYRIN SQ SCH (09:34)
[2024-06-05] MEDS: NADOLOL 20 MG TABLET (FP) PO SCH (09:35)
[2024-06-05 10:30] LABS: POTASSIUM 3.6 mmol/L (3.5-5.1)
[2024-06-05 10:31] LABS: CALCIUM 8.7 mg/dL (8.5-10.1)
[2024-06-05 10:35] LABS: CREATININE 0.7 mg/dL (0.55-1.3)
[2024-06-05] MEDS: LACTATED RINGERS SOLUTION 1,000 ML/1,000 ML INFUS.BAG IV SCH ×2 (11:00→14:23)
[2024-06-05 11:17] LABS: PHOSPHOROUS 2.2 mg/dL (2.5-4.9)
[2024-06-05] MEDS ORDERED: DEXTROSE 50%-WATER - 25 GM/50 ML VIAL IVPUSH PRN (13:43)
[2024-06-05] MEDS: INSULIN (NOVOLOG) ASPART 100 UNITS/ML 10ML VIAL SQ ONE (14:22)
[2024-06-05] MEDS: INSULIN (NOVOLOG) ASPART 100 UNITS/ML 10ML VIAL SQ SCH (17:02)
[2024-06-05] MEDS: ACETAMINOPHEN 325 MG TABLET (FP) PO PRN (17:16)
[2024-06-05] MEDS: ATORVASTATIN CA 10 MG TABLET (FP) PO SCH (21:20)
[2024-06-05] MEDS ORDERED: ATORVASTATIN CA 10 MG TABLET (FP) PO SCH (22:00)
[2024-06-06 09:17] LABS: HEMATOCRIT 37.7 % (35.4-49); HEMOGLOBIN 13.3 GM/dL (11.7-16.9); MCH 30.8 pg (25.7-33.7); MCHC 35.2 g/dl (32.0-35.9); MEAN CELL VOLUME 87.3 fl (80-96); MEAN PLT VOLUME 7.5 fl (7.5-11.1); PLATELET COUNT 155 10^3/uL (134-434); RBC 4.32 M/mm3 (4.00-5.60); RDW 13.9 % (11.9-15.9); WHITE BLOOD COUNT 6.3 K/mm3 (4.0-10.0)
[2024-06-06 09:43] LABS: CHLORIDE 99 mmol/L (98-107); SODIUM 136 mmol/L (136-145)
[2024-06-06 09:48] LABS: POTASSIUM 2.6 mmol/L (3.5-5.1)
[2024-06-06 09:53] LABS: ANION GAP 8 mmol/L (4-13); BLOOD UREA NITROGEN 3.3 mg/dL (7-18); CO2 30 mmol/L (21-32); GLUCOSE,RANDOM 96 mg/dL (74-106); MAGNESIUM 1.6 mg/dL (1.8-2.4)
[2024-06-06 09:54] LABS: CALCIUM 8.5 mg/dL (8.5-10.1)
[2024-06-06 09:56] LABS: PHOSPHOROUS 2.3 mg/dL (2.5-4.9); SGOT/AST 37 U/L (15-37); SGPT/ALT 28 U/L (13-61)
[2024-06-06 09:57] LABS: ALBUMIN 2.6 g/dl (3.4-5.0); CREATININE 0.4 mg/dL (0.55-1.3)
[2024-06-06 09:58] LABS: TOT PROT 6.3 g/dl (6.4-8.2)
[2024-06-06 10:00] LABS: ALK PHOS 105 U/L (45-117); BILIRUBIN,TOTAL 0.7 mg/dL (0.2-1)
[2024-06-06] MEDS: PIPERACILLIN/TAZOB 3.375 GM 50 ML IVPB SCH (10:24)
[2024-06-06] MEDS: PANTOPRAZOLE 40 MG TABLET PO SCH (12:03)
[2024-06-06] MEDS: ENOXAPARIN NA (PORCINE) 40 MG/0.4 ML DISP.SYRIN SQ SCH (12:04)
[2024-06-06] MEDS: NADOLOL 20 MG TABLET (FP) PO SCH (12:04)
[2024-06-06] MEDS: LISINOPRIL 5 MG TABLET PO SCH (12:04)
[2024-06-06] MEDS: KCL 10 MEQ IVPB 10 MEQ/100 ML INFUS.BAG IVPB SCH (12:05)
[2024-06-06] MEDS: POTASSIUM CHLORIDE ORAL LIQUID 20 MEQ/15 ML PO ONE (12:10)
[2024-06-06] MEDS: MAGNESIUM 2GM/50ML STERILE WATER IVPB IVPB ONE (12:11)
[2024-06-06] MEDS: CHLORHEXIDINE GLUCONATE 4% CLEANSER FOR DECOLONIZATION TP SCH (15:18)
[2024-06-06] MEDS: MUPIROCIN 2% TOPICAL OINTMENT FOR DECOLONIZATION NS SCH (15:18)
[2024-06-06] MEDS: INSULIN ASPART SLIDING SCALE (NOVOLOG) 1 VIAL SQ SCH (18:05)
[2024-06-06] MEDS: INSULIN (LEVEMIR) 100 UNITS/ML UNITS SQ SCH (22:08)
[2024-06-06] MEDS ORDERED: DEXTROSE 50%-WATER 25 GM/50 ML DISP.SYRIN IVPUSH PRN (23:44)
[2024-06-07] MEDS: ACETAMINOPHEN 500 MG TABLET (FP) PO ONE (06:33)
[2024-06-07 09:29] LABS: BASO % 0.4 % (0-2.0); EOS % 0.8 % (0-4.5); HEMATOCRIT 35.5 % (35.4-49); HEMOGLOBIN 11.9 GM/dL (11.7-16.9); LYMPH % 24.5 % (8-40); MCH 29.8 pg (25.7-33.7); MCHC 33.6 g/dl (32.0-35.9); MEAN CELL VOLUME 88.7 fl (80-96); MEAN PLT VOLUME 7.8 fl (7.5-11.1); MONO % 12.7 % (3.8-10.2); NEUT % 61.6 % (42.8-82.8); PLATELET COUNT 133 10^3/uL (134-434); RDW 13.5 % (11.9-15.9); WHITE BLOOD COUNT 4.3 K/mm3 (4.0-10.0)
[2024-06-07 11:33] LABS: POTASSIUM 3.3 mmol/L (3.5-5.1)
[2024-06-07 11:35] LABS: ALBUMIN 2.4 g/dl (3.4-5.0); CALCIUM 8.3 mg/dL (8.5-10.1)
[2024-06-07 11:36] LABS: BLOOD UREA NITROGEN 5.2 mg/dL (7-18)
[2024-06-07 11:39] LABS: CREATININE 0.5 mg/dL (0.55-1.3)
[2024-06-07 11:40] LABS: BILIRUBIN,TOTAL 0.5 mg/dL (0.2-1); TOT PROT 5.9 g/dl (6.4-8.2)
[2024-06-07] MEDS: POTASSIUM CHLORIDE ORAL LIQUID 20 MEQ/15 ML PO ONE (12:23)
[2024-06-07 15:50] VITALS: BP 101/64; PULSE 74; RESP 18; TEMP 98.4
== END 2024-06-07 16:40 | disposition home or self-care (01) | DRG 420 ==
LOC: JER 11:49 → JERBED 17:34 → JICU 19:01 → J8W 06-05 13:47
PROVIDERS: ADMIT Internal Medicine; ATTEND Nurse Practitioner Family
DX: E11.10 Type 2 diabetes mellitus with ketoacidosis without coma (principal); I10 Essential (primary) hypertension; K70.30 Alcoholic cirrhosis of liver without ascites; D72.829 Elevated white blood cell count, unspecified; H92.09 Otalgia, unspecified ear; K21.9 Gastro-esophageal reflux disease without esophagitis; R53.82 Chronic fatigue, unspecified; R63.0 Anorexia
CPT/HCPCS: 0241U-QW; 36415; 36600; 71046-TC-FY; 80048; 80053; 80307; 81003; 82010; 82803; 82962; 83036; 83735; 84100; 84132; 84484; 85025; 85027; 87481; 93005; 93010; 97116-GP; 97161-GP; 99285-25